=== PATIENT | female | born 1950 | race Caucasian/White ===

== ENCOUNTER → 2016-12-16 | Outpatient (CLI) | payer MEDICARE ==
[~2016-12-16] MED LIST: ACET65TA OR; BISA10SU2 RE; CALC1TAB21 PO; CALCIUM PO; CAPT12.5 OR; CAPT125TA PO; CARI350T OR; CARISPRODOL PO; CEFD1CAP8 PO; CIPR500T4 OR; COLA100C2 OR; COUMADIN; DESIPRAMINE PO; DOXY100C PO; DOXY100T OR; EFFE37.527 OR; EFFE37.527 PO; FERR325T OR; FLUO20CA9 PO; FURO20TA PO; FURO20TA2 PO; FURO40TA2 OR; LACT20EL PO; LASI20TA OR; LASI40TA OR; METF-414 PO; METF500T4 OR; METFORMIN PO; METO-209 PO; METOPROLOL PO; METOPROLOL TARTRATE; NORP10TA2 PO; NORPRAMIN PO; OMEP20CA3 PO; OMEP20TA7 OR; OMEPPOW18 PO; OXYCODONE/APAP PO; PERC10TA17 PO; PERC5TAB8 OR; PERC7.5T8 OR; PLAV75TA2 OR; PLAV75TA38 PO; PLAVIX PO; POTA10CA2 OR; PROB500T29 PO; PROBENECID PO; PROZ20CA OR; PROZAC PO; SIMV20TA2 OR; SIMV40TA2 PO; SIMVASTIN PO; SOMA350T PO; TOPR100T OR; TRAM50TA2 OR; VENL37.5 OR; VERA24TASA PO; VERAPAMIL PO; VESI10TA PO; VESICARE PO; [UNRECOGNIZED DRUG - CODE] OR; heparin SQ
--- NOTE | 2016-12-16 22:18 | REP ---
PA and lateral chest 12/16/2016 Indication: Chronic diastolic congestive heart failure Comparison: PA and lateral chest 06/08/2013 Findings: The cardiomediastinal silhouette is normal. Small amount of bibasilar fibrotic scarring is noted. There do appear to be bilateral bony exostosis off the medial aspect of the humeral necks bilaterally without change , and most compatible with osteochondromas. Additionally findings suggest intra-articular loose bodies within the left shoulder joint representing interval change There are mild degenerative changes in thoracic spine Impression: Normal cardiomediastinal silhouette Mild bibasilar fibrotic scarring. 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 Suggest intra-articular loose bodies within the left shoulders, joint representing interval change Signed by Alejandrina Curtis MD 12/16/2016 10:08 P
== END | disposition home or self-care (01) ==
LOC: M RAD 11:55
PROVIDERS: ATTEND Physician Assistant
DX: R93.7 Abnormal findings on diagnostic imaging of other parts of musculoskeletal system (principal)

== ENCOUNTER 2016-12-26 21:32 | Emergency (ER) | payer MEDICARE ==
[2016-12-26] MEDS ORDERED: MORPHINE 2 MG/ML 1ML SYRINGE As Ordered ONE (22:11)
[2016-12-26 22:19] LABS: BASO # 0.2 K/mm3 (0.0-0.2); BASO % 1.4 % (0.0-1.0); EOS # 0.3 K/mm3 (0.0-0.50); EOS % 2.3 % (0.0-3.0); LARGE UNSTAINED CELL # 0.1 K/mm3 (0.0-0.4); LYMPH % 7.1 % (24.0-44.0); MEAN CORPUSCULAR HEMOGLOBIN 29.2 pg (27.0-33.0); MEAN CORPUSCULAR VOLUME 91.4 fl (80.0-96.0); MONO # 0.5 K/mm3 (0.0-0.8); MONO % 3.9 % (0.0-5.0); NEUTROPHILS % 84.2 % (36.0-66.0); PLATELET COUNT, AUTOMATED 236 k/mm3 (150-450); RED CELL DISTRIBUTION WIDTH 14.3 % (11.5-14.5); WHITE BLOOD COUNT 11.9 K/mm3 (4.0-10.0)
[2016-12-26] MEDS ORDERED: READI-CAT 2 As Ordered ONE (22:24)
[2016-12-26 22:26] LABS: INR 1.01
[2016-12-26 22:40] LABS: ALBUMIN 3.2 GM/DL (3.2-5.2); ALBUMIN/GLOBULIN RATIO 0.73 (1.00-1.93); ALKALINE PHOSPHATASE 96 U/L (45-117); ALT/SGPT 22 U/L (12-78); AMYLASE 17 U/L (25-115); ANION GAP 10 MEQ/L (8-16); AST/SGOT 19 U/L (15-37); BILIRUBIN,DIRECT 0.1 MG/DL (0.0-0.2); BILIRUBIN,TOTAL 0.6 MG/DL (0.2-1.0); BLOOD UREA NITROGEN 15 MG/DL (7-18); CALCIUM LEVEL 8.8 MG/DL (8.8-10.2); CARBON DIOXIDE LEVEL 26 MEQ/L (21-32); CHLORIDE LEVEL 103 MEQ/L (98-107); CREATININE FOR GFR 0.98 MG/DL (0.55-1.02); GLOMERULAR FILTRATION RATE > 60.0 (>45); GLUCOSE, FASTING 130 MG/DL (80-110); POTASSIUM SERUM 3.9 MEQ/L (3.5-5.1); SODIUM LEVEL 139 MEQ/L (136-145); TOTAL PROTEIN 7.6 GM/DL (6.4-8.2)
--- NOTE | 2016-12-27 00:30 | REPUSA ---
CT of the abdomen and pelvis without contrast Clinical statement: Pain. Technique: Multiple axial CT images were obtained from the base of the lungs to the floor of the pelv is utilizing 5 mm axial slices after ministration of oral contrast. Coronal and sagittal reconstructi ons were also obtained. No comparison is available. Findings: Chest: The visualized lung bases are clear. Abdomen: The kidneys are normal in size bilaterally. There is no evidence of hydronephrosis or nephro lithiasis. The liver, spleen, pancreas, gallbladder and adrenal glands are unremarkable. The aorta de monstrates normal caliber and contour. There is no abdominal lymphadenopathy or ascites. IVC filter i s in place. Pelvis: The bowel is unremarkable, with no obstructive or inflammatory changes. The appendix is woo l. The urinary bladder is within normal limits. There is no pelvic lymphadenopathy or ascites. The ot her pelvic structures appear unremarkable. Bones: There are no suspicious osseous abnormalities seen. Impression: Unremarkable CT examination of the abdomen and pelvis.
[2016-12-27] MEDS ORDERED: MORPHINE 2 MG/ML 1ML SYRINGE As Ordered ONE (01:18)
--- NOTE | 2016-12-27 02:49 | EDDOCDS ---
Physician Documentation [facility] Name: Fifi Vigil Age: 66 yrs Sex: Female : 1950 Arrival Date: 12/26/2016 Time: 21:32 Bed 7 Private MD: Redd Griffith MD Disposition: 12/27/16 01:55 Discharged to Home/Self Care. Impression: Left sided colitis, Dehydration, Pneumonia in diseases classified elsewhere - perihilar infiltrate. - Condition is Stable. - Discharge Instructions: Clear Liquid Diet. - Prescriptions for Zithromax Z- Ihsan 250 mg Oral Tablet - take 1 tablet by ORAL route as directed for 5 days Day 1- take two tablets once. Day 2, 3, 4 , 5 take one tablet once daily.; 6 tablet. - Medication Reconciliation, Local Pharmacy Hours form. - Follow up: Redd Griffith; When: Call to arrange an appointment; Reason: Recheck today's complaints. - Problem is new. - Symptoms have improved. Historical: - Allergies: IODINEIODINE CONTAINING; IV Dye (Hives); Latex (Hives); - Home Meds: 1. Calcium + Vitamin D 600 mg calcium- 200 unit Oral tab daily 2. captopril 12.5 mg Oral tab 1 tab 2 times per day 3. carisoprodol 350 mg Oral tab 1 tab 3 times per day 4. desipramine 10 mg Oral tab 1 tab once daily 5. Effexor XR 37.5 mg Oral cp24 1 cap once daily 6. fluoxetine 20 mg Oral cap 3 caps once daily 7. metformin 500 mg Oral tr24 1 tab once daily 8. metoprolol succinate 100 mg Tb24 1 tab once daily 9. omeprazole 20 mg Oral cpDR 1 cap once daily 10. oxycodone-acetaminophen 10-325 mg Oral tab twice a day as needed 11. Plavix 75 mg Oral tab 1 tab once daily 12. probenecid 500 mg Oral tab daily 13. simvastatin 40 mg Oral tab 1 tab once daily 14. verapamil 240 mg Oral TbER 1 tab once daily 15. Vesicare 10 mg oral tab 1 tab once daily 16. nystatin 100,000 unit/gram Topical powd as needed 17. lactulose 20 gram/30 mL Oral soln twice a day - PMHx: CHF; Diabetes - NIDDM: controlled; Diverticulitis; High Cholesterol; spina bifida; TIA; - PSHx: Hysterectomy; amputation toes; Carpal Tunnel Repair- Bilateral; Hernia repair; Tony Filter Placement; left knee replacement; - Social history: Smoking status: Patient states former smoker of tobacco. No barriers to communication noted, The patient speaks fluent Barbadian. - Family history: Not pertinent. - : The pt / caregiver states he / she is not on anticoagulants. Home medication list is obtained from the patient. - Exposure Risk Screening:: None identified. Vital Signs: 12/26 21:34 BP 147 / 67; Pulse 129; Resp 18 S; Temp 99.8(O); Pulse Ox 93% on R/A; Weight 101.15 kg gr2 / 223 lbs (R); Height 5 ft. 7 in. (170.18 cm) (R); Pain 7/10; 12/27 00:14 BP 127 / 86 (auto/); jp6 00:16 Pulse Ox 93% ; jp6 00:16 Pulse 118; Resp 20; Temp 99.6(O); Pain 9/10; jp6 01:21 BP 122 / 65 (auto/); jp6 01:22 Pulse 104 MON; Pulse Ox 94% ; jp6 01:22 Resp 18; Pain 9/10; jp6 01:32 BP 123 / 67 (auto/); jp6 01:33 Pulse 110 MON; Pulse Ox 93% ; jp6 02:02 BP 124 / 58 (auto/); jp6 02:03 Pulse 110 MON; Pulse Ox 92% ; jp6 02:03 Resp 20; Temp 99.6(O); Pain 2/10; jp6 12/26 21:34 Body Mass Index 34.93 (101.15 kg, 170.18 cm) gr2 MDM: 12/26 22:05 IV Saline Lock ordered. cs11 22:05 NS 0.9% 500 ml IV at bolus once ordered. cs11 22:05 morphine 2 mg IVP once ordered. cs11 22:06 CBC with Diff Ordered. EDMS 22:06 MED Profile Ordered. EDMS 22:06 Liver Profile Ordered. EDMS 22:06 Amylase Ordered. EDMS 22:06 Lipase Ordered. EDMS 22:06 Pt & Aptt Ordered. EDMS 22:11 CT ABD & PELVIS: Oral Contrast Only Ordered. EDMS 22:30 Barium Sulfate Suspension 450 ml PO bolus ordered. jp6 22:44 CBC with Diff Reviewed. cs11 22:44 MED Profile Reviewed. cs11 22:44 Liver Profile Reviewed. cs11 22:44 Amylase Reviewed. cs11 22:44 Lipase Reviewed. cs11 22:44 Pt & Aptt Reviewed. cs11 22:44 NS 0.9% 500 ml IV at bolus once ordered. cs11 22:51 Financial registration complete. gjb 23:01 [facility] Payment Agreement was scanned into [employer] and attached to record. gjb 23:01 Undo -Financial registration. gjb 23:01 Financial registration complete. gjb 23:36 Barium Sulfate Suspension 450 ml PO bolus ordered. jp6 12/27 00:59 CT ABD & PELVIS: Oral Contrast Only Reviewed. cs11 00:59 NS 0.9% 500 ml IV at bolus once ordered. cs11 01:02 Chest, 2 View (pa\E\lat) Ordered. EDMS 01:18 morphine 2 mg IVP once ordered. cs11 01:18 Vital Signs ordered. cs11 Administered Medications: 12/26 22:20 Drug: morphine 2 mg [morphine 2 mg/mL intravenous cartridge (1 mL)] Route: IVP; Site: jp6 right antecubital; 22:21 Drug: NS 0.9% 500 ml [sodium chloride 0.9 % intravenous solution] Route: IV; Rate: jp6 bolus; Site: right antecubital; 22:30 Drug: Barium Sulfate 450 ml [barium sulfate 2.1 % (w/v), 2.0 % (w/w) oral suspension jp6 (450 mL)] Route: PO; 23:02 Drug: NS 0.9% 500 ml [sodium chloride 0.9 % intravenous solution] Route: IV; Rate: jp6 bolus; Site: right antecubital; 23:36 Drug: Barium Sulfate 450 ml [barium sulfate 2.1 % (w/v), 2.0 % (w/w) oral suspension jp6 (450 mL)] Route: PO; 12/27 01:29 Drug: morphine 2 mg [morphine 2 mg/mL intravenous cartridge (1 mL)] Route: IVP; Site: jp6 right antecubital; 01:30 Drug: NS 0.9% 500 ml [sodium chloride 0.9 % intravenous solution] Route: IV; Rate: jp6 bolus; Site: right antecubital; Signatures: Dispatcher [employer] Naina Flower RN RN rs3 Christiano Rojas DO DO cs11 Sulema Clement Jessica, RN RN jp6 The chart was reviewed and I authenticate all verbal orders and agree with the evaluation and treatment provided.Attachments: 12/26 23:01 [facility] Payment Agreement demetria MTDD
--- NOTE | 2016-12-27 02:49 | EDDOCDS ---
Nurse's Notes [facility] Name: Fifi Vigil Age: 66 yrs Sex: Female : 1950 Arrival Date: 12/26/2016 Time: 21:32 Bed 7 Private MD: Redd Griffith MD Diagnosis: Left sided colitis;Dehydration;Pneumonia in diseases classified elsewhere-perihilar infiltrate Presentation: 12/26 21:39 Presenting complaint: Patient states: Rectal bleeding, mucous diarrhea since Thursday rs3 on and off. Adult Sepsis Screening: The patient does not have new or worsening altered mentation. Patient's respiratory rate is less than 22. Systolic blood pressure is greater than 100. Patient has a qSOFA score of 0- Negative Sepsis Screen. Suicide/Homicide risk assessment- the patient denies having any suicidal and/or homicidal ideations and does not present with any other emotional, behavioral or mental health complaints. 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 Transition of care: patient was not received from another setting of care. 21:39 Acuity: BRITTANIE Level 3 rs3 21:39 Method Of Arrival: Walkin/Carried/Asstd rs3 Triage Assessment: 21:43 General: Appears in no apparent distress. Pain: Location: abdomen. rs3 Historical: - Allergies: IODINEIODINE CONTAINING; IV Dye (Hives); Latex (Hives); - Home Meds: 1. Calcium + Vitamin D 600 mg calcium- 200 unit Oral tab daily 2. captopril 12.5 mg Oral tab 1 tab 2 times per day 3. carisoprodol 350 mg Oral tab 1 tab 3 times per day 4. desipramine 10 mg Oral tab 1 tab once daily 5. Effexor XR 37.5 mg Oral cp24 1 cap once daily 6. fluoxetine 20 mg Oral cap 3 caps once daily 7. metformin 500 mg Oral tr24 1 tab once daily 8. metoprolol succinate 100 mg Tb24 1 tab once daily 9. omeprazole 20 mg Oral cpDR 1 cap once daily 10. oxycodone-acetaminophen 10-325 mg Oral tab twice a day as needed 11. Plavix 75 mg Oral tab 1 tab once daily 12. probenecid 500 mg Oral tab daily 13. simvastatin 40 mg Oral tab 1 tab once daily 14. verapamil 240 mg Oral TbER 1 tab once daily 15. Vesicare 10 mg oral tab 1 tab once daily 16. nystatin 100,000 unit/gram Topical powd as needed 17. lactulose 20 gram/30 mL Oral soln twice a day - PMHx: CHF; Diabetes - NIDDM: controlled; Diverticulitis; High Cholesterol; spina bifida; TIA; - PSHx: Hysterectomy; amputation toes; Carpal Tunnel Repair- Bilateral; Hernia repair; Tony Filter Placement; left knee replacement; - Social history: Smoking status: Patient states former smoker of tobacco. No barriers to communication noted, The patient speaks fluent Icelandic. - Family history: Not pertinent. - : The pt / caregiver states he / she is not on anticoagulants. Home medication list is obtained from the patient. - Exposure Risk Screening:: None identified. Screenin:39 Infection Control. gr2 21:50 Screening information is obtained from the patient. Fall risk: No risks identified. jp6 Assistance ADL's: requires no assistance with activities of daily living. Abuse/DV Screen: The patient / caregiver reports he/she is: not in a situation that causes fear, pain or injury. Nutritional screening: No deficits noted. home support is adequate. 12/27 02:03 Advance Directives: Currently, there is no health care proxy. There is no active DNR jp6 order. There is no living will. Assessment: 12/26 21:50 General: Appears distressed, ill, obese, uncomfortable, Behavior is anxious, jp6 appropriate for age, cooperative. Pain: Location: abdomen Pain currently is 8 out of 10 on a pain scale. back, Quality of pain is described as pressure. Neurological: No deficits noted. Level of Consciousness is awake, alert, Oriented to person, place, time. EENT: No deficits noted. Cardiovascular: No deficits noted. Respiratory: No deficits noted. Airway is patent Respiratory effort is even, unlabored, Respiratory pattern is regular, symmetrical, Breath sounds are clear bilaterally. GI: Abdomen is obese, Stools are reported to be diarrhea. Bowel sounds present X 4 quads. : No deficits noted. Derm: Skin is pink, warm & dry. Musculoskeletal: No deficits noted. 22:50 Reassessment: pain is at 5/10 ,drinking oral contrast.. jp6 23:52 Reassessment: Patient appears in no apparent distress at this time. out of bed to 6 bathroom had small yellow loose stool. Waiting for CT.. 12/27 00:52 Reassessment: Patient states symptoms have improved. Pain: Location: abdomen Pain jp6 currently is 8 out of 10 on a pain scale. Neurological: Level of Consciousness is awake, alert, Oriented to person, place, time. Cardiovascular: No deficits noted. Respiratory: No deficits noted. Airway is patent Respiratory effort is even, unlabored, Respiratory pattern is regular, symmetrical. Derm: Skin is pink, warm & dry. 00:52 Reassessment: Patient states symptoms have improved. VS are stable.Waiting for jp6 discharge after IVF bolus.. 01:52 Reassessment: Patient appears in no apparent distress at this time. Patient states jp6 symptoms have not improved. General: Appears in no apparent distress, uncomfortable, Behavior is appropriate for age, cooperative. Pain: Location: abdomen Pain currently is 5 out of 10 on a pain scale. Respiratory: Airway is patent Respiratory effort is even, unlabored, Respiratory pattern is regular, symmetrical. Derm: Skin is pink, warm & dry. 02:44 Reassessment: Patient appears in no apparent distress at this time. Patient states jp6 symptoms have improved. Pain: Location: abdomen Pain currently is 2 out of 10 on a pain scale. Neurological: Level of Consciousness is awake, alert, Oriented to person, place, time. EENT: No deficits noted. Cardiovascular: No deficits noted. Respiratory: Airway is patent Respiratory effort is even, unlabored, Respiratory pattern is regular, symmetrical. Derm: Skin is pink, warm & dry. Musculoskeletal: No deficits noted. Vital Signs: 12/26 21:34 BP 147 / 67; Pulse 129; Resp 18 S; Temp 99.8(O); Pulse Ox 93% on R/A; Weight 101.15 kg gr2 (R); Height 5 ft. 7 in. (170.18 cm) (R); Pain 06/08; 12/27 00:14 BP 127 / 86 (auto/); jp6 00:16 Pulse Ox 93% ; jp6 00:16 Pulse 118; Resp 20; Temp 99.6(O); Pain 9/10; jp6 01:21 BP 122 / 65 (auto/); jp6 01:22 Pulse 104 MON; Pulse Ox 94% ; jp6 01:22 Resp 18; Pain 9/10; jp6 01:32 BP 123 / 67 (auto/); jp6 01:33 Pulse 110 MON; Pulse Ox 93% ; jp6 02:02 BP 124 / 58 (auto/); jp6 02:03 Pulse 110 MON; Pulse Ox 92% ; jp6 02:03 Resp 20; Temp 99.6(O); Pain 2/10; jp6 12/26 21:34 Body Mass Index 34.93 (101.15 kg, 170.18 cm) gr2 Vitals: 12/26 21:34 Log In Time: December 26, 2016 at 21:34. RN notified that patient meets Red Flag gr2 criteria. ED Course: 21:34 Patient visited by Irlanda Laughlin. gr2 21:34 Redd Griffith is Private Physician. gr2 21:34 Patient moved to Waiting gr2 21:37 Patient visited by Irlanda Laughlin. gr2 21:37 Patient moved to Pre RCE gr2 21:40 Triage Initiated rs3 21:44 Christiano Rojas DO is Attending Physician. cs11 21:44 Patient visited by Christiano Rojas DO. cs11 21:44 Patient moved to 7 rs3 21:45 Irina Raygoza,FREYA is Primary Nurse. jp6 21:50 The patient / caregiver is instructed regarding the plan of care and ED course. jp6 21:50 Inserted saline lock: 20 gauge in right antecubital area and blood collected. No jp6 procedures done that require assistance. Labs drawn. (by ED staff). Sent per order to lab. 23:01 [facility] Payment Agreement was scanned into [employer] Trunk and attached to record. gjb 23:02 Patient visited by Irina Raygoza RN. jp6 12/27 00:12 Patient visited by Irina Raygoza RN. jp6 00:50 CT ABD & PELVIS: Oral Contrast Only Returned. EDMS 01:16 Patient visited by Irina Raygoza RN. jp6 01:54 Redd Griffith is Referral Physician. cs11 02:03 Pulse ox on. NIBP on. jp6 02:03 Discontinued lock intact, bleeding controlled, pressure dressing applied, No jp6 redness/swelling at site. Administered Medications: 12/26 22:20 Drug: morphine 2 mg [morphine 2 mg/mL intravenous cartridge (1 mL)] Route: IVP; Site: jp6 right antecubital; 22:21 Drug: NS 0.9% 500 ml [sodium chloride 0.9 % intravenous solution] Route: IV; Rate: jp6 bolus; Site: right antecubital; 22:30 Drug: Barium Sulfate 450 ml [barium sulfate 2.1 % (w/v), 2.0 % (w/w) oral suspension jp6 (450 mL)] Route: PO; 23:02 Drug: NS 0.9% 500 ml [sodium chloride 0.9 % intravenous solution] Route: IV; Rate: jp6 bolus; Site: right antecubital; 23:36 Drug: Barium Sulfate 450 ml [barium sulfate 2.1 % (w/v), 2.0 % (w/w) oral suspension jp6 (450 mL)] Route: PO; 12/27 01:29 Drug: morphine 2 mg [morphine 2 mg/mL intravenous cartridge (1 mL)] Route: IVP; Site: jp6 right antecubital; 01:30 Drug: NS 0.9% 500 ml [sodium chloride 0.9 % intravenous solution] Route: IV; Rate: jp6 bolus; Site: right antecubital; Intake: 02:03 PO: 120.00ml; IV: 1500.00ml; Total: 1620.00ml. jp6 Output: 02:03 Urine: 1.00ml (Voided); Stool: 1 (Loose Stool) ; Total: 1.00ml. jp6 Order Results: Lab Order: CBC with Diff; SPEC'M 12/26/16 22:06 Test: WHITE BLOOD COUNT; Value: 11.9; Range: 4.0-10.0; Abnormal: Above high normal; Units: K/mm3; Status: F Test: RED BLOOD COUNT; Value: 4.48; Range: 4.00-5.40; Units: M/mm3; Status: F Test: HEMOGLOBIN; Value: 13.1; Range: 12.0-16.0; Units: g/dl; Status: F Test: HEMATOCRIT; Value: 41.0; Range: 36.0-47.0; Units: %; Status: F Test: MEAN CORPUSCULAR VOLUME; Value: 91.4; Range: 80.0-96.0; Units: fl; Status: F Test: MEAN CORPUSCULAR HEMOGLOBIN; Value: 29.2; Range: 27.0-33.0; Units: pg; Status: F Test: MEAN CORPUSCULAR HGB CONC; Value: 32.0; Range: 32.0-36.5; Units: g/dl; Status: F Test: RED CELL DISTRIBUTION WIDTH; Value: 14.3; Range: 11.5-14.5; Units: %; Status: F Test: PLATELET COUNT, AUTOMATED; Value: 236; Range: 150-450; Units: k/mm3; Status: F Test: NEUTROPHILS %; Value: 84.2; Range: 36.0-66.0; Abnormal: Above high normal; Units: %; Status: F Test: LYMPH %; Value: 7.1; Range: 24.0-44.0; Abnormal: Below low normal; Units: %; Status: F Test: MONO %; Value: 3.9; Range: 0.0-5.0; Units: %; Status: F Test: EOS %; Value: 2.3; Range: 0.0-3.0; Units: %; Status: F Test: BASO %; Value: 1.4; Range: 0.0-1.0; Abnormal: Above high normal; Units: %; Status: F Test: LARGE UNSTAINED CELL %; Value: 1.0; Range: 0.0-4.0; Units: %; Status: F Test: NEUTROPHILS #; Value: 10.0; Range: 1.8-7.7; Abnormal: Above high normal; Units: K/mm3; Status: F Test: LYMPH #; Value: 1.0; Range: 1.5-4.5; Abnormal: Below low normal; Units: K/mm3; Status: F Test: MONO #; Value: 0.5; Range: 0.0-0.8; Units: K/mm3; Status: F Test: EOS #; Value: 0.3; Range: 0.0-0.50; Units: K/mm3; Status: F Test: BASO #; Value: 0.2; Range: 0.0-0.2; Units: K/mm3; Status: F Test: LARGE UNSTAINED CELL #; Value: 0.1; Range: 0.0-0.4; Units: K/mm3; Status: F Lab Order: MED Profile; SPEC'M 12/26/16 22:06 Test: GLUCOSE, FASTING; Value: 130; Range: 80-110; Abnormal: Above high normal; Units: MG/DL; Status: F Test: BLOOD UREA NITROGEN; Value: 15; Range: 7-18; Units: MG/DL; Status: F Test: CREATININE FOR GFR; Value: 0.98; Range: 0.55-1.02; Units: MG/DL; Status: F Test: GLOMERULAR FILTRATION RATE; Value: > 60.0; Range: >45; Status: F Test: SODIUM LEVEL; Value: 139; Range: 136-145; Units: MEQ/L; Status: F Test: POTASSIUM SERUM; Value: 3.9; Range: 3.5-5.1; Units: MEQ/L; Status: F Test: CHLORIDE LEVEL; Value: 103; Range: 98-107; Units: MEQ/L; Status: F Test: CARBON DIOXIDE LEVEL; Value: 26; Range: 21-32; Units: MEQ/L; Status: F Test: ANION GAP; Value: 10; Range: 8-16; Units: MEQ/L; Status: F Test: CALCIUM LEVEL; Value: 8.8; Range: 8.8-10.2; Units: MG/DL; Status: F Test Note: ; Units are mL/min/1.73 m2 Chronic Kidney Disease Staging per NKF: Stage I & II GFR >=60 Normal to Mildly Decreased Stage III GFR 30-59 Moderately Decreased Stage IV GFR 15-29 Severely Decreased Stage V GFR <15 Very Little GFR Left ESRD GFR <15 on CHANGE ATTENDANT Lab Order: Liver Profile; SPEC'M 12/26/16 22:06 Test: AST/SGOT; Value: 19; Range: 15-37; Units: U/L; Status: F Test: ALT/SGPT; Value: 22; Range: 12-78; Units: U/L; Status: F Test: ALKALINE PHOSPHATASE; Value: 96; Range: 45-117; Units: U/L; Status: F Test: BILIRUBIN,TOTAL; Value: 0.6; Range: 0.2-1.0; Units: MG/DL; Status: F Test: BILIRUBIN,DIRECT; Value: 0.1; Range: 0.0-0.2; Units: MG/DL; Status: F Test: TOTAL PROTEIN; Value: 7.6; Range: 6.4-8.2; Units: GM/DL; Status: F Test: ALBUMIN; Value: 3.2; Range: 3.2-5.2; Units: GM/DL; Status: F Test: ALBUMIN/GLOBULIN RATIO; Value: 0.73; Range: 1.00-1.93; Abnormal: Below low normal; Status: F Lab Order: Amylase; SPEC' 12/26/16 22:06 Test: AMYLASE; Value: 17; Range: 25-115; Abnormal: Below low normal; Units: U/L; Status: F Lab Order: Lipase; [facility] 12/26/16 22:06 Test: LIPASE; Value: 52; Range: 73-393; Abnormal: Below low normal; Units: U/L; Status: F Lab Order: Pt & Aptt; [facility] 12/26/16 22:06 Test: PROTHROMBIN TIME; Value: 13.4; Range: 12.3-14.5; Units: SECONDS; Status: F Test: INR; Value: 1.01; Status: F Test: PARTIAL THROMBOPLASTIN TIME; Value: 29.5; Range: 26.6-37.1; Units: SECONDS; Status: F Test Note: ; THERAPUTIC HUMAN INR VALUES INDICATIONS NORMAL RANGES PROPHYLAXIS/TREATMENT OF: VENOUS THROMBOSIS 2.0-3.0 PULMONARY EMBOLISM 2.0-3.0 PREVENTION OF SYSTEMIC EMBOLISM FROM: TISSUE HEART VALVES 2.0-3.0 ACUTE MYOCARDIAL INFARCTION 2.0-3.0 VALVULAR HEART DISEASE 2.0-3.0 ATRIAL FIBRILLATION 2.0-3.0 MECHANICAL VALVES(HIGH RISK) 2.5-3.5 RECURRENT MYOCARDIAL INFARCTION 2.5-3.5 Radiology Order: CT ABD & PELVIS: Oral Contrast Only Test: CT ABD & PELVIS: Oral Contrast Only REASON FOR EXAMINATION: Diverticulitis; ; CT of the abdomen and pelvis without contrast; Clinical statement: Pain.; Technique: Multiple axial CT images were obtained from the base of the lungs to the floor of the pelv; is utilizing 5 mm axial slices after ministration of oral contrast. Coronal and sagittal reconstructi; ons were also obtained.; No comparison is available.; Findings:; Chest: The visualized lung bases are clear.; Abdomen: The kidneys are normal in size bilaterally. There is no evidence of hydronephrosis or nephro; lithiasis. The liver, spleen, pancreas, gallbladder and adrenal glands are unremarkable. The aorta de; monstrates normal caliber and contour. There is no abdominal lymphadenopathy or ascites. IVC filter i; s in place.; Pelvis: The bowel is unremarkable, with no obstructive or inflammatory changes. The appendix is woo; l. The urinary bladder is within normal limits. There is no pelvic lymphadenopathy or ascites. The ot; her pelvic structures appear unremarkable.; Bones: There are no suspicious osseous abnormalities seen.; Impression: Unremarkable CT examination of the abdomen and pelvis.; ; Outcome: 01:55 Discharge ordered by Provider. cs11 02:03 Discharge Assessment: Patient awake, alert and oriented x 3. No cognitive and/or jp6 functional deficits noted. Patient verbalized understanding of disposition instructions. patient administered narcotics - yes. Pt provided with safe discharge. The following High Risk Discharge criteria are identified: None. Discharged to home via wheelchair, with significant other. Condition: good. Discharge instructions given to patient, Instructed on discharge instructions, follow up and referral plans. medication usage, Demonstrated understanding of instructions, medications, Pt was receptive of discharge instructions/ teaching. Prescriptions given X 1. CT Study completed. Property :Personal belongings accompany Pt. 02:47 Patient left the ED. jp6 Signatures: Dispatcher [employer] EDMS Naina Matias,RN RN rs3 Christiano Rojas DO DO cs11 Irlanda Laughlin 2 Sulema Clement Jessica, RN RN jp6 MTDD
--- NOTE | 2016-12-29 03:48 | EDDOCDS ---
Nurse's Notes [facility] Name: Fifi Vigil Age: 66 yrs Sex: Female : 1950 Arrival Date: 12/26/2016 Time: 21:32 Bed 7 Private MD: Redd Griffith MD Diagnosis: Left sided colitis;Dehydration;Pneumonia in diseases classified elsewhere-perihilar infiltrate Presentation: 12/26 21:39 Presenting complaint: Patient states: Rectal bleeding, mucous diarrhea since Thursday rs3 on and off. Adult Sepsis Screening: The patient does not have new or worsening altered mentation. Patient's respiratory rate is less than 22. Systolic blood pressure is greater than 100. Patient has a qSOFA score of 0- Negative Sepsis Screen. Suicide/Homicide risk assessment- the patient denies having any suicidal and/or homicidal ideations and does not present with any other emotional, behavioral or mental health complaints. Status: Patient is not a human services assistant or dependent. Transition of care: patient was not received from another setting of care. 21:39 Acuity: BRITTANIE Level 3 rs3 21:39 Method Of Arrival: Walkin/Carried/Asstd rs3 Triage Assessment: 21:43 General: Appears in no apparent distress. Pain: Location: abdomen. rs3 Historical: - Allergies: IODINEIODINE CONTAINING; IV Dye (Hives); Latex (Hives); - Home Meds: 1. Calcium + Vitamin D 600 mg calcium- 200 unit Oral tab daily 2. captopril 12.5 mg Oral tab 1 tab 2 times per day 3. carisoprodol 350 mg Oral tab 1 tab 3 times per day 4. desipramine 10 mg Oral tab 1 tab once daily 5. Effexor XR 37.5 mg Oral cp24 1 cap once daily 6. fluoxetine 20 mg Oral cap 3 caps once daily 7. metformin 500 mg Oral tr24 1 tab once daily 8. metoprolol succinate 100 mg Tb24 1 tab once daily 9. omeprazole 20 mg Oral cpDR 1 cap once daily 10. oxycodone-acetaminophen 10-325 mg Oral tab twice a day as needed 11. Plavix 75 mg Oral tab 1 tab once daily 12. probenecid 500 mg Oral tab daily 13. simvastatin 40 mg Oral tab 1 tab once daily 14. verapamil 240 mg Oral TbER 1 tab once daily 15. Vesicare 10 mg oral tab 1 tab once daily 16. nystatin 100,000 unit/gram Topical powd as needed 17. lactulose 20 gram/30 mL Oral soln twice a day - PMHx: CHF; Diabetes - NIDDM: controlled; Diverticulitis; High Cholesterol; spina bifida; TIA; - PSHx: Hysterectomy; amputation toes; Carpal Tunnel Repair- Bilateral; Hernia repair; Tony Filter Placement; left knee replacement; - Social history: Smoking status: Patient states former smoker of tobacco. No barriers to communication noted, The patient speaks fluent [place]agu[place]. - Family history: Not pertinent. - : The pt / caregiver states he / she is not on anticoagulants. Home medication list is obtained from the patient. - Exposure Risk Screening:: None identified. Screenin:39 Infection Control. gr2 21:50 Screening information is obtained from the patient. Fall risk: No risks identified. jp6 Assistance ADL's: requires no assistance with activities of daily living. Abuse/DV Screen: The patient / caregiver reports he/she is: not in a situation that causes fear, pain or injury. Nutritional screening: No deficits noted. home support is adequate. 12/27 02:03 Advance Directives: Currently, there is no health care proxy. There is no active DNR jp6 order. There is no living will. Assessment: 12/26 21:50 General: Appears distressed, ill, obese, uncomfortable, Behavior is anxious, jp6 appropriate for age, cooperative. Pain: Location: abdomen Pain currently is 8 out of 10 on a pain scale. back, Quality of pain is described as pressure. Neurological: No deficits noted. Level of Consciousness is awake, alert, Oriented to person, place, time. EENT: No deficits noted. Cardiovascular: No deficits noted. Respiratory: No deficits noted. Airway is patent Respiratory effort is even, unlabored, Respiratory pattern is regular, symmetrical, Breath sounds are clear bilaterally. GI: Abdomen is obese, Stools are reported to be diarrhea. Bowel sounds present X 4 quads. : No deficits noted. Derm: Skin is pink, warm & dry. Musculoskeletal: No deficits noted. 22:50 Reassessment: pain is at 5/10 ,drinking oral contrast.. jp6 23:52 Reassessment: Patient appears in no apparent distress at this time. out of bed to 6 bathroom had small yellow loose stool. Waiting for CT.. 12/27 00:52 Reassessment: Patient states symptoms have improved. Pain: Location: abdomen Pain jp6 currently is 8 out of 10 on a pain scale. Neurological: Level of Consciousness is awake, alert, Oriented to person, place, time. Cardiovascular: No deficits noted. Respiratory: No deficits noted. Airway is patent Respiratory effort is even, unlabored, Respiratory pattern is regular, symmetrical. Derm: Skin is pink, warm & dry. 00:52 Reassessment: Patient states symptoms have improved. VS are stable.Waiting for jp6 discharge after IVF bolus.. 01:52 Reassessment: Patient appears in no apparent distress at this time. Patient states jp6 symptoms have not improved. General: Appears in no apparent distress, uncomfortable, Behavior is appropriate for age, cooperative. Pain: Location: abdomen Pain currently is 5 out of 10 on a pain scale. Respiratory: Airway is patent Respiratory effort is even, unlabored, Respiratory pattern is regular, symmetrical. Derm: Skin is pink, warm & dry. 02:44 Reassessment: Patient appears in no apparent distress at this time. Patient states jp6 symptoms have improved. Pain: Location: abdomen Pain currently is 2 out of 10 on a pain scale. Neurological: Level of Consciousness is awake, alert, Oriented to person, place, time. EENT: No deficits noted. Cardiovascular: No deficits noted. Respiratory: Airway is patent Respiratory effort is even, unlabored, Respiratory pattern is regular, symmetrical. Derm: Skin is pink, warm & dry. Musculoskeletal: No deficits noted. Vital Signs: 12/26 21:34 BP 147 / 67; Pulse 129; Resp 18 S; Temp 99.8(O); Pulse Ox 93% on R/A; Weight 101.15 kg gr2 (R); Height 5 ft. 7 in. (170.18 cm) (R); Pain 06/08; 12/27 00:14 BP 127 / 86 (auto/); jp6 00:16 Pulse Ox 93% ; jp6 00:16 Pulse 118; Resp 20; Temp 99.6(O); Pain 9/10; jp6 01:21 BP 122 / 65 (auto/); jp6 01:22 Pulse 104 MON; Pulse Ox 94% ; jp6 01:22 Resp 18; Pain 9/10; jp6 01:32 BP 123 / 67 (auto/); jp6 01:33 Pulse 110 MON; Pulse Ox 93% ; jp6 02:02 BP 124 / 58 (auto/); jp6 02:03 Pulse 110 MON; Pulse Ox 92% ; jp6 02:03 Resp 20; Temp 99.6(O); Pain 2/10; jp6 12/26 21:34 Body Mass Index 34.93 (101.15 kg, 170.18 cm) gr2 Vitals: 12/26 21:34 Log In Time: December 26, 2016 at 21:34. RN notified that patient meets Red Flag gr2 criteria. ED Course: 21:34 Patient visited by Irlanda Laughlin. gr2 21:34 Redd Griffith is Private Physician. gr2 21:34 Patient moved to Waiting gr2 21:37 Patient visited by Irlanda Laughlin. gr2 21:37 Patient moved to Pre RCE gr2 21:40 Triage Initiated rs3 21:44 Christiano Rojas DO is Attending Physician. cs11 21:44 Patient visited by Christiano Rojas DO. cs11 21:44 Patient moved to 7 rs3 21:45 Irina Raygoza,FREYA is Primary Nurse. jp6 21:50 The patient / caregiver is instructed regarding the plan of care and ED course. jp6 21:50 Inserted saline lock: 20 gauge in right antecubital area and blood collected. No jp6 procedures done that require assistance. Labs drawn. (by ED staff). Sent per order to lab. 23:01 [facility] Payment Agreement was scanned into [employer] and attached to record. gjb 23:02 Patient visited by Irina Raygoza RN. jp6 12/27 00:12 Patient visited by Irina Raygoza,FREYA. jp6 00:50 CT ABD & PELVIS: Oral Contrast Only Returned. EDMS 01:16 Patient visited by Irina Raygoza,FREYA. jp6 01:54 Redd Griffith is Referral Physician. cs11 02:03 Pulse ox on. NIBP on. jp6 02:03 Discontinued lock intact, bleeding controlled, pressure dressing applied, No jp6 redness/swelling at site. 07:46 T-Sheet-- Draft Copy was scanned into [employer] and attached to record. gb 10:57 Radiology Report was scanned into [employer] and attached to record. gb Administered Medications: 12/26 22:20 Drug: morphine 2 mg [morphine 2 mg/mL intravenous cartridge (1 mL)] Route: IVP; Site: jp6 right antecubital; 22:21 Drug: NS 0.9% 500 ml [sodium chloride 0.9 % intravenous solution] Route: IV; Rate: jp6 bolus; Site: right antecubital; 22:30 Drug: Barium Sulfate 450 ml [barium sulfate 2.1 % (w/v), 2.0 % (w/w) oral suspension jp6 (450 mL)] Route: PO; 23:02 Drug: NS 0.9% 500 ml [sodium chloride 0.9 % intravenous solution] Route: IV; Rate: jp6 bolus; Site: right antecubital; 23:36 Drug: Barium Sulfate 450 ml [barium sulfate 2.1 % (w/v), 2.0 % (w/w) oral suspension jp6 (450 mL)] Route: PO; 12/27 01:29 Drug: morphine 2 mg [morphine 2 mg/mL intravenous cartridge (1 mL)] Route: IVP; Site: jp6 right antecubital; 01:30 Drug: NS 0.9% 500 ml [sodium chloride 0.9 % intravenous solution] Route: IV; Rate: jp6 bolus; Site: right antecubital; Intake: 02:03 PO: 120.00ml; IV: 1500.00ml; Total: 1620.00ml. jp6 Output: 02:03 Urine: 1.00ml (Voided); Stool: 1 (Loose Stool) ; Total: 1.00ml. jp6 Order Results: Lab Order: CBC with Diff; SPEC'M 12/26/16 22:06 Test: WHITE BLOOD COUNT; Value: 11.9; Range: 4.0-10.0; Abnormal: Above high normal; Units: K/mm3; Status: F Test: RED BLOOD COUNT; Value: 4.48; Range: 4.00-5.40; Units: M/mm3; Status: F Test: HEMOGLOBIN; Value: 13.1; Range: 12.0-16.0; Units: g/dl; Status: F Test: HEMATOCRIT; Value: 41.0; Range: 36.0-47.0; Units: %; Status: F Test: MEAN CORPUSCULAR VOLUME; Value: 91.4; Range: 80.0-96.0; Units: fl; Status: F Test: MEAN CORPUSCULAR HEMOGLOBIN; Value: 29.2; Range: 27.0-33.0; Units: pg; Status: F Test: MEAN CORPUSCULAR HGB CONC; Value: 32.0; Range: 32.0-36.5; Units: g/dl; Status: F Test: RED CELL DISTRIBUTION WIDTH; Value: 14.3; Range: 11.5-14.5; Units: %; Status: F Test: PLATELET COUNT, AUTOMATED; Value: 236; Range: 150-450; Units: k/mm3; Status: F Test: NEUTROPHILS %; Value: 84.2; Range: 36.0-66.0; Abnormal: Above high normal; Units: %; Status: F Test: LYMPH %; Value: 7.1; Range: 24.0-44.0; Abnormal: Below low normal; Units: %; Status: F Test: MONO %; Value: 3.9; Range: 0.0-5.0; Units: %; Status: F Test: EOS %; Value: 2.3; Range: 0.0-3.0; Units: %; Status: F Test: BASO %; Value: 1.4; Range: 0.0-1.0; Abnormal: Above high normal; Units: %; Status: F Test: LARGE UNSTAINED CELL %; Value: 1.0; Range: 0.0-4.0; Units: %; Status: F Test: NEUTROPHILS #; Value: 10.0; Range: 1.8-7.7; Abnormal: Above high normal; Units: K/mm3; Status: F Test: LYMPH #; Value: 1.0; Range: 1.5-4.5; Abnormal: Below low normal; Units: K/mm3; Status: F Test: MONO #; Value: 0.5; Range: 0.0-0.8; Units: K/mm3; Status: F Test: EOS #; Value: 0.3; Range: 0.0-0.50; Units: K/mm3; Status: F Test: BASO #; Value: 0.2; Range: 0.0-0.2; Units: K/mm3; Status: F Test: LARGE UNSTAINED CELL #; Value: 0.1; Range: 0.0-0.4; Units: K/mm3; Status: F Lab Order: MED Profile; SPEC'M 12/26/16 22:06 Test: GLUCOSE, FASTING; Value: 130; Range: 80-110; Abnormal: Above high normal; Units: MG/DL; Status: F Test: BLOOD UREA NITROGEN; Value: 15; Range: 7-18; Units: MG/DL; Status: F Test: CREATININE FOR GFR; Value: 0.98; Range: 0.55-1.02; Units: MG/DL; Status: F Test: GLOMERULAR FILTRATION RATE; Value: > 60.0; Range: >45; Status: F Test: SODIUM LEVEL; Value: 139; Range: 136-145; Units: MEQ/L; Status: F Test: POTASSIUM SERUM; Value: 3.9; Range: 3.5-5.1; Units: MEQ/L; Status: F Test: CHLORIDE LEVEL; Value: 103; Range: 98-107; Units: MEQ/L; Status: F Test: CARBON DIOXIDE LEVEL; Value: 26; Range: 21-32; Units: MEQ/L; Status: F Test: ANION GAP; Value: 10; Range: 8-16; Units: MEQ/L; Status: F Test: CALCIUM LEVEL; Value: 8.8; Range: 8.8-10.2; Units: MG/DL; Status: F Test Note: ; Units are mL/min/1.73 m2 Chronic Kidney Disease Staging per NKF: Stage I & II GFR >=60 Normal to Mildly Decreased Stage III GFR 30-59 Moderately Decreased Stage IV GFR 15-29 Severely Decreased Stage V GFR <15 Very Little GFR Left ESRD GFR <15 on STERILIZATION TECHNICIAN Lab Order: Liver Profile; SPEC'M 12/26/16 22:06 Test: AST/SGOT; Value: 19; Range: 15-37; Units: U/L; Status: F Test: ALT/SGPT; Value: 22; Range: 12-78; Units: U/L; Status: F Test: ALKALINE PHOSPHATASE; Value: 96; Range: 45-117; Units: U/L; Status: F Test: BILIRUBIN,TOTAL; Value: 0.6; Range: 0.2-1.0; Units: MG/DL; Status: F Test: BILIRUBIN,DIRECT; Value: 0.1; Range: 0.0-0.2; Units: MG/DL; Status: F Test: TOTAL PROTEIN; Value: 7.6; Range: 6.4-8.2; Units: GM/DL; Status: F Test: ALBUMIN; Value: 3.2; Range: 3.2-5.2; Units: GM/DL; Status: F Test: ALBUMIN/GLOBULIN RATIO; Value: 0.73; Range: 1.00-1.93; Abnormal: Below low normal; Status: F Lab Order: Amylase; [facility] 12/26/16 22:06 Test: AMYLASE; Value: 17; Range: 25-115; Abnormal: Below low normal; Units: U/L; Status: F Lab Order: Lipase; [facility] 12/26/16 22:06 Test: LIPASE; Value: 52; Range: 73-393; Abnormal: Below low normal; Units: U/L; Status: F Lab Order: Pt & Aptt; [facility] 12/26/16 22:06 Test: PROTHROMBIN TIME; Value: 13.4; Range: 12.3-14.5; Units: SECONDS; Status: F Test: INR; Value: 1.01; Status: F Test: PARTIAL THROMBOPLASTIN TIME; Value: 29.5; Range: 26.6-37.1; Units: SECONDS; Status: F Test Note: ; THERAPUTIC HUMAN INR VALUES INDICATIONS NORMAL RANGES PROPHYLAXIS/TREATMENT OF: VENOUS THROMBOSIS 2.0-3.0 PULMONARY EMBOLISM 2.0-3.0 PREVENTION OF SYSTEMIC EMBOLISM FROM: TISSUE HEART VALVES 2.0-3.0 ACUTE MYOCARDIAL INFARCTION 2.0-3.0 VALVULAR HEART DISEASE 2.0-3.0 ATRIAL FIBRILLATION 2.0-3.0 MECHANICAL VALVES(HIGH RISK) 2.5-3.5 RECURRENT MYOCARDIAL INFARCTION 2.5-3.5 Radiology Order: CT ABD & PELVIS: Oral Contrast Only Test: CT ABD & PELVIS: Oral Contrast Only REASON FOR EXAMINATION: Diverticulitis; ; CT of the abdomen and pelvis without contrast; Clinical statement: Pain.; Technique: Multiple axial CT images were obtained from the base of the lungs to the floor of the pelv; is utilizing 5 mm axial slices after ministration of oral contrast. Coronal and sagittal reconstructi; ons were also obtained.; No comparison is available.; Findings:; Chest: The visualized lung bases are clear.; Abdomen: The kidneys are normal in size bilaterally. There is no evidence of hydronephrosis or nephro; lithiasis. The liver, spleen, pancreas, gallbladder and adrenal glands are unremarkable. The aorta de; monstrates normal caliber and contour. There is no abdominal lymphadenopathy or ascites. IVC filter i; s in place.; Pelvis: The bowel is unremarkable, with no obstructive or inflammatory changes. The appendix is woo; l. The urinary bladder is within normal limits. There is no pelvic lymphadenopathy or ascites. The ot; her pelvic structures appear unremarkable.; Bones: There are no suspicious osseous abnormalities seen.; Impression: Unremarkable CT examination of the abdomen and pelvis.; ; Outcome: 01:55 Discharge ordered by Provider. cs11 02:03 Discharge Assessment: Patient awake, alert and oriented x 3. No cognitive and/or jp6 functional deficits noted. Patient verbalized understanding of disposition instructions. patient administered narcotics - yes. Pt provided with safe discharge. The following High Risk Discharge criteria are identified: None. Discharged to home via wheelchair, with significant other. Condition: good. Discharge instructions given to patient, Instructed on discharge instructions, follow up and referral plans. medication usage, Demonstrated understanding of instructions, medications, Pt was receptive of discharge instructions/ teaching. Prescriptions given X 1. CT Study completed. Property :Personal belongings accompany Pt. 02:47 Patient left the ED. jp6 Signatures: Dispatcher [employer] EDMS Dora Wang, Reg Reg gb Naina Matias,RN RN rs3 Christiano Rojas DO DO cs11 Irlanda Laughlin gr2 Sulema Clement JessicaRN RN jp6 Chart Complete MTDD
--- NOTE | 2016-12-29 03:48 | EDDOCDS ---
Physician Documentation [facility] Name: Fifi Vigil Age: 66 yrs Sex: Female : 1950 Arrival Date: 12/26/2016 Time: 21:32 Bed 7 Private MD: Redd Griffith MD Disposition: 12/27/16 01:55 Discharged to Home/Self Care. Impression: Left sided colitis, Dehydration, Pneumonia in diseases classified elsewhere - perihilar infiltrate. - Condition is Stable. - Discharge Instructions: Clear Liquid Diet. - Prescriptions for Zithromax Z- Ihsan 250 mg Oral Tablet - take 1 tablet by ORAL route as directed for 5 days Day 1- take two tablets once. Day 2, 3, 4 , 5 take one tablet once daily.; 6 tablet. - Medication Reconciliation, Local Pharmacy Hours form. - Follow up: Redd Griffith; When: Call to arrange an appointment; Reason: Recheck today's complaints. - Problem is new. - Symptoms have improved. Historical: - Allergies: IODINEIODINE CONTAINING; IV Dye (Hives); Latex (Hives); - Home Meds: 1. Calcium + Vitamin D 600 mg calcium- 200 unit Oral tab daily 2. captopril 12.5 mg Oral tab 1 tab 2 times per day 3. carisoprodol 350 mg Oral tab 1 tab 3 times per day 4. desipramine 10 mg Oral tab 1 tab once daily 5. Effexor XR 37.5 mg Oral cp24 1 cap once daily 6. fluoxetine 20 mg Oral cap 3 caps once daily 7. metformin 500 mg Oral tr24 1 tab once daily 8. metoprolol succinate 100 mg Tb24 1 tab once daily 9. omeprazole 20 mg Oral cpDR 1 cap once daily 10. oxycodone-acetaminophen 10-325 mg Oral tab twice a day as needed 11. Plavix 75 mg Oral tab 1 tab once daily 12. probenecid 500 mg Oral tab daily 13. simvastatin 40 mg Oral tab 1 tab once daily 14. verapamil 240 mg Oral TbER 1 tab once daily 15. Vesicare 10 mg oral tab 1 tab once daily 16. nystatin 100,000 unit/gram Topical powd as needed 17. lactulose 20 gram/30 mL Oral soln twice a day - PMHx: CHF; Diabetes - NIDDM: controlled; Diverticulitis; High Cholesterol; spina bifida; TIA; - PSHx: Hysterectomy; amputation toes; Carpal Tunnel Repair- Bilateral; Hernia repair; Tony Filter Placement; left knee replacement; - Social history: Smoking status: Patient states former smoker of tobacco. No barriers to communication noted, The patient speaks fluent Slovenian. - Family history: Not pertinent. - : The pt / caregiver states he / she is not on anticoagulants. Home medication list is obtained from the patient. - Exposure Risk Screening:: None identified. Vital Signs: 12/26 21:34 BP 147 / 67; Pulse 129; Resp 18 S; Temp 99.8(O); Pulse Ox 93% on R/A; Weight 101.15 kg gr2 / 223 lbs (R); Height 5 ft. 7 in. (170.18 cm) (R); Pain 7/10; 12/27 00:14 BP 127 / 86 (auto/); jp6 00:16 Pulse Ox 93% ; jp6 00:16 Pulse 118; Resp 20; Temp 99.6(O); Pain 9/10; jp6 01:21 BP 122 / 65 (auto/); jp6 01:22 Pulse 104 MON; Pulse Ox 94% ; jp6 01:22 Resp 18; Pain 9/10; jp6 01:32 BP 123 / 67 (auto/); jp6 01:33 Pulse 110 MON; Pulse Ox 93% ; jp6 02:02 BP 124 / 58 (auto/); jp6 02:03 Pulse 110 MON; Pulse Ox 92% ; jp6 02:03 Resp 20; Temp 99.6(O); Pain 2/10; jp6 12/26 21:34 Body Mass Index 34.93 (101.15 kg, 170.18 cm) gr2 MDM: 12/26 22:05 IV Saline Lock ordered. cs11 22:05 NS 0.9% 500 ml IV at bolus once ordered. cs11 22:05 morphine 2 mg IVP once ordered. cs11 22:06 CBC with Diff Ordered. EDMS 22:06 MED Profile Ordered. EDMS 22:06 Liver Profile Ordered. EDMS 22:06 Amylase Ordered. EDMS 22:06 Lipase Ordered. EDMS 22:06 Pt & Aptt Ordered. EDMS 22:11 CT ABD & PELVIS: Oral Contrast Only Ordered. EDMS 22:30 Barium Sulfate Suspension 450 ml PO bolus ordered. jp6 22:44 CBC with Diff Reviewed. cs11 22:44 MED Profile Reviewed. cs11 22:44 Liver Profile Reviewed. cs11 22:44 Amylase Reviewed. cs11 22:44 Lipase Reviewed. cs11 22:44 Pt & Aptt Reviewed. cs11 22:44 NS 0.9% 500 ml IV at bolus once ordered. cs11 22:51 Financial registration complete. gjb 23:01 [facility] Payment Agreement was scanned into [employer] and attached to record. gjb 23:01 Undo -Financial registration. gjb 23:01 Financial registration complete. gjb 23:36 Barium Sulfate Suspension 450 ml PO bolus ordered. jp6 12/27 00:59 CT ABD & PELVIS: Oral Contrast Only Reviewed. cs11 00:59 NS 0.9% 500 ml IV at bolus once ordered. cs11 01:02 Chest, 2 View (pa\E\lat) Ordered. EDMS 01:18 morphine 2 mg IVP once ordered. cs11 01:18 Vital Signs ordered. cs11 07:46 T-Sheet-- Draft Copy was scanned into [employer] and attached to record. gb 10:57 Radiology Report was scanned into [employer] and attached to record. gb Administered Medications: 12/26 22:20 Drug: morphine 2 mg [morphine 2 mg/mL intravenous cartridge (1 mL)] Route: IVP; Site: jp6 right antecubital; 22:21 Drug: NS 0.9% 500 ml [sodium chloride 0.9 % intravenous solution] Route: IV; Rate: jp6 bolus; Site: right antecubital; 22:30 Drug: Barium Sulfate 450 ml [barium sulfate 2.1 % (w/v), 2.0 % (w/w) oral suspension jp6 (450 mL)] Route: PO; 23:02 Drug: NS 0.9% 500 ml [sodium chloride 0.9 % intravenous solution] Route: IV; Rate: jp6 bolus; Site: right antecubital; 23:36 Drug: Barium Sulfate 450 ml [barium sulfate 2.1 % (w/v), 2.0 % (w/w) oral suspension jp6 (450 mL)] Route: PO; 12/27 01:29 Drug: morphine 2 mg [morphine 2 mg/mL intravenous cartridge (1 mL)] Route: IVP; Site: jp6 right antecubital; 01:30 Drug: NS 0.9% 500 ml [sodium chloride 0.9 % intravenous solution] Route: IV; Rate: jp6 bolus; Site: right antecubital; Signatures: Dispatcher [employer] Dora Mota, Reg Reg gb Naina Matias,RN RN rs3 Christiano Rojas DO DO cs11 Sulema Clement JessicaRN RN jp6 The chart was reviewed and I authenticate all verbal orders and agree with the evaluation and treatment provided.Attachments: 12/26 23:01 [facility] Payment Agreement gjb 12/27 07:46 T-Sheet-- Draft Copy gb Chart Complete MTDD
--- NOTE | 2016-12-29 03:48 | EDDOCDS ---
Physician Documentation [facility] Name: Fifi Vigil Age: 66 yrs Sex: Female : 1950 Arrival Date: 12/26/2016 Time: 21:32 Bed 7 Private MD: Redd Griffith MD Disposition: 12/27/16 01:55 Discharged to Home/Self Care. Impression: Left sided colitis, Dehydration, Pneumonia in diseases classified elsewhere - perihilar infiltrate. - Condition is Stable. - Discharge Instructions: Clear Liquid Diet. - Prescriptions for Zithromax Z- Ihsan 250 mg Oral Tablet - take 1 tablet by ORAL route as directed for 5 days Day 1- take two tablets once. Day 2, 3, 4 , 5 take one tablet once daily.; 6 tablet. - Medication Reconciliation, Local Pharmacy Hours form. - Follow up: Redd Griffith; When: Call to arrange an appointment; Reason: Recheck today's complaints. - Problem is new. - Symptoms have improved. Historical: - Allergies: IODINEIODINE CONTAINING; IV Dye (Hives); Latex (Hives); - Home Meds: 1. Calcium + Vitamin D 600 mg calcium- 200 unit Oral tab daily 2. captopril 12.5 mg Oral tab 1 tab 2 times per day 3. carisoprodol 350 mg Oral tab 1 tab 3 times per day 4. desipramine 10 mg Oral tab 1 tab once daily 5. Effexor XR 37.5 mg Oral cp24 1 cap once daily 6. fluoxetine 20 mg Oral cap 3 caps once daily 7. metformin 500 mg Oral tr24 1 tab once daily 8. metoprolol succinate 100 mg Tb24 1 tab once daily 9. omeprazole 20 mg Oral cpDR 1 cap once daily 10. oxycodone-acetaminophen 10-325 mg Oral tab twice a day as needed 11. Plavix 75 mg Oral tab 1 tab once daily 12. probenecid 500 mg Oral tab daily 13. simvastatin 40 mg Oral tab 1 tab once daily 14. verapamil 240 mg Oral TbER 1 tab once daily 15. Vesicare 10 mg oral tab 1 tab once daily 16. nystatin 100,000 unit/gram Topical powd as needed 17. lactulose 20 gram/30 mL Oral soln twice a day - PMHx: CHF; Diabetes - NIDDM: controlled; Diverticulitis; High Cholesterol; spina bifida; TIA; - PSHx: Hysterectomy; amputation toes; Carpal Tunnel Repair- Bilateral; Hernia repair; Tony Filter Placement; left knee replacement; - Social history: Smoking status: Patient states former smoker of tobacco. No barriers to communication noted, The patient speaks fluent Wallisian. - Family history: Not pertinent. - : The pt / caregiver states he / she is not on anticoagulants. Home medication list is obtained from the patient. - Exposure Risk Screening:: None identified. Vital Signs: 12/26 21:34 BP 147 / 67; Pulse 129; Resp 18 S; Temp 99.8(O); Pulse Ox 93% on R/A; Weight 101.15 kg gr2 / 223 lbs (R); Height 5 ft. 7 in. (170.18 cm) (R); Pain 7/10; 12/27 00:14 BP 127 / 86 (auto/); jp6 00:16 Pulse Ox 93% ; jp6 00:16 Pulse 118; Resp 20; Temp 99.6(O); Pain 9/10; jp6 01:21 BP 122 / 65 (auto/); jp6 01:22 Pulse 104 MON; Pulse Ox 94% ; jp6 01:22 Resp 18; Pain 9/10; jp6 01:32 BP 123 / 67 (auto/); jp6 01:33 Pulse 110 MON; Pulse Ox 93% ; jp6 02:02 BP 124 / 58 (auto/); jp6 02:03 Pulse 110 MON; Pulse Ox 92% ; jp6 02:03 Resp 20; Temp 99.6(O); Pain 2/10; jp6 12/26 21:34 Body Mass Index 34.93 (101.15 kg, 170.18 cm) gr2 MDM: 12/26 22:05 IV Saline Lock ordered. cs11 22:05 NS 0.9% 500 ml IV at bolus once ordered. cs11 22:05 morphine 2 mg IVP once ordered. cs11 22:06 CBC with Diff Ordered. EDMS 22:06 MED Profile Ordered. EDMS 22:06 Liver Profile Ordered. EDMS 22:06 Amylase Ordered. EDMS 22:06 Lipase Ordered. EDMS 22:06 Pt & Aptt Ordered. EDMS 22:11 CT ABD & PELVIS: Oral Contrast Only Ordered. EDMS 22:30 Barium Sulfate Suspension 450 ml PO bolus ordered. jp6 22:44 CBC with Diff Reviewed. cs11 22:44 MED Profile Reviewed. cs11 22:44 Liver Profile Reviewed. cs11 22:44 Amylase Reviewed. cs11 22:44 Lipase Reviewed. cs11 22:44 Pt & Aptt Reviewed. cs11 22:44 NS 0.9% 500 ml IV at bolus once ordered. cs11 22:51 Financial registration complete. gjb 23:01 [facility] Payment Agreement was scanned into [employer] and attached to record. gjb 23:01 Undo -Financial registration. gjb 23:01 Financial registration complete. gjb 23:36 Barium Sulfate Suspension 450 ml PO bolus ordered. jp6 12/27 00:59 CT ABD & PELVIS: Oral Contrast Only Reviewed. cs11 00:59 NS 0.9% 500 ml IV at bolus once ordered. cs11 01:02 Chest, 2 View (pa\E\lat) Ordered. EDMS 01:18 morphine 2 mg IVP once ordered. cs11 01:18 Vital Signs ordered. cs11 07:46 T-Sheet-- Draft Copy was scanned into [employer] and attached to record. gb 10:57 Radiology Report was scanned into [employer] and attached to record. gb Administered Medications: 12/26 22:20 Drug: morphine 2 mg [morphine 2 mg/mL intravenous cartridge (1 mL)] Route: IVP; Site: jp6 right antecubital; 22:21 Drug: NS 0.9% 500 ml [sodium chloride 0.9 % intravenous solution] Route: IV; Rate: jp6 bolus; Site: right antecubital; 22:30 Drug: Barium Sulfate 450 ml [barium sulfate 2.1 % (w/v), 2.0 % (w/w) oral suspension jp6 (450 mL)] Route: PO; 23:02 Drug: NS 0.9% 500 ml [sodium chloride 0.9 % intravenous solution] Route: IV; Rate: jp6 bolus; Site: right antecubital; 23:36 Drug: Barium Sulfate 450 ml [barium sulfate 2.1 % (w/v), 2.0 % (w/w) oral suspension jp6 (450 mL)] Route: PO; 12/27 01:29 Drug: morphine 2 mg [morphine 2 mg/mL intravenous cartridge (1 mL)] Route: IVP; Site: jp6 right antecubital; 01:30 Drug: NS 0.9% 500 ml [sodium chloride 0.9 % intravenous solution] Route: IV; Rate: jp6 bolus; Site: right antecubital; Signatures: Dispatcher [employer] Dora Mota, Reg Reg gb Naina Matias,RN RN rs3 Christiano Rojas DO DO cs11 Sulema Clement JessicaRN RN jp6 The chart was reviewed and I authenticate all verbal orders and agree with the evaluation and treatment provided.Attachments: 12/26 23:01 [facility] Payment Agreement gjb 12/27 07:46 T-Sheet-- Draft Copy gb Chart Complete MTDD
--- NOTE | 2016-12-29 08:29 | REP ---
PA and lateral chest: Comparison is 2016. There are no focal infiltrates or effusions. Lung hough otherwise clear. Cardiac size is normal. The juan francisco and mediastinum are unremarkable. There is bilateral shoulder osteoarthritis and bilateral humeral neck osteochondromas, unchanged. Impression: No acute cardiopulmonary findings. Signed by Donn Harden MD 12/27/2016 08:46 A
== END 2016-12-27 02:47 | disposition home or self-care (01) ==
LOC: M ED 21:32
DX: K52.9 Noninfective gastroenteritis and colitis, unspecified (principal); E86.0 Dehydration; J18.9 Pneumonia, unspecified organism; I50.9 Heart failure, unspecified; E11.9 Type 2 diabetes mellitus without complications; K57.30 Diverticulosis of large intestine without perforation or abscess without bleeding; E78.00 Pure hypercholesterolemia, unspecified; Z86.73 Personal history of transient ischemic attack (TIA), and cerebral infarction without residual deficits; Q05.9 Spina bifida, unspecified; Z89.429 Acquired absence of other toe(s), unspecified side; Z96.652 Presence of left artificial knee joint; Z95.828 Presence of other vascular implants and grafts; Z87.891 Personal history of nicotine dependence; Z79.899 Other long term (current) drug therapy; Z79.02 Long term (current) use of antithrombotics/antiplatelets; Z88.8 Allergy status to other drugs, medicaments and biological substances; Z91.041 Radiographic dye allergy status; Z91.040 Latex allergy status

== ENCOUNTER → 2020-01-10 | Outpatient (CLI) | payer MEDICARE ==
[~2020-01-10] MED LIST changes: +EFFE37.5 PO; -EFFE37.527 PO; +FLUO20CA22 PO; -FLUO20CA9 PO; +LACT10SO7 PO; -LACT20EL PO; -METO-209 PO; +METO-745 OR; +METO1TAB33 PO; +OMEP1CAP73 PO; -OMEP20CA3 PO; -PERC10TA17 PO; +PERC10TA26 PO; +PLAV1TAB2 PO; -PLAV75TA38 PO; -SIMV40TA2 PO; +SIMV40TA20 PO; -TOPR100T OR; -VESI10TA PO; +VESI10TA2 PO
--- NOTE | 2020-01-10 16:31 | REP ---
Clinical: Left flank pain. Technique: Axial noncontrast images from the lung bases to the pubic symphysis with coronal and sagittal re-formations. Comparison: 12/27/2016. Findings: Lung bases are clear. Visualized heart and pericardium normal. Liver, spleen, pancreas, gallbladder, bilateral adrenal glands and kidneys are normal for noncontrast examination. Specifically, no perinephric stranding, hydroureteronephrosis, intrarenal or obstructing ureteral calculi are identified. IVC filter noted. The enteric system is without obstruction or acute inflammatory process. Normal terminal ileum and appendix are identified in the right lower quadrant. Few scattered sigmoid diverticula noted without acute diverticulitis. Pelvis demonstrates normal bladder and evidence of prior hysterectomy. No ascites. No free air. No adenopathy. Abdominal aorta without aneurysm. Musculoskeletal structures demonstrate degenerative changes. Impression: 1. No acute abdominopelvic pathology appreciated. Electronically Signed by Gabe Roy MD 01/10/2020 04:22 P
== END ==
LOC: M RAD 15:51
PROVIDERS: ATTEND Family Medicine
DX: N23 Unspecified renal colic (principal)

== ENCOUNTER → 2020-06-25 | Outpatient (CLI) | payer MEDICARE ==
--- NOTE | 2020-08-17 10:46 | REP ---
THREE PHASE BONE SCAN OF THE KNEES: HISTORY: Rule out loosening of hardware, double knee replacement. Presence of left artificial knee joint. TECHNIQUE: 22.0 mCi of Technetium 99m MDP is injected and standard three phase imaging is acquired. FINDINGS: The anterior and posterior flow images are unremarkable. Blood pool images demonstrate a focus of slightly asymmetric uptake laterally on the left about the artificial knee prosthesis. Delayed scan images demonstrates bone/prosthesis interface uptake bilaterally, left generally a little more prominent that right. On the lateral projection, there is asymmetric increased uptake in the left knee region posteriorly at the level of the distal femoral prosthetic component. There is asymmetric uptake laterally on the left on the anterior images as well. This may reflect loosening. IMPRESSION: Findings consistent with loosening at the femoral component of the left knee prosthesis posteriorly and laterally. Otherwise, expected uptake pattern post bilateral knee arthroplasty. MTDD
== END ==
LOC: M RAD 07:30
PROVIDERS: ATTEND Physician Assistant Surgical
DX: Z96.653 Presence of artificial knee joint, bilateral (principal)

== ENCOUNTER → 2022-01-14 | Outpatient (REF) | payer MEDICARE ==
[~2022-01-14] MED LIST changes: -CEFD1CAP8 PO; +CEFD300C41 PO; -DOXY100C PO; +DOXY100C3 PO; +VERA240T65 PO; -VERA24TASA PO
[2022-01-14 19:25] LABS: APPEARANCE, URINE CLEAR (CLEAR); BACTERIA, URINE AUTO 2+ (NEGATIVE); BILIRUBIN, URINE AUTO NEGATIVE (NEGATIVE); BLOOD, URINE BLOOD NEGATIVE (NEGATIVE); COLOR, URINE YELLOW (YELLOW); GLUCOSE, URINE (UA) AUTO NEGATIVE (NEGATIVE); KETONE, URINE AUTO TRACE mg/dL (NEGATIVE); LEUKOCYTE ESTERASE, URINE AUTO 2+ (NEGATIVE); MUCUS, URINE SMALL (NEGATIVE); NITRITE, URINE AUTO POSITIVE (NEGATIVE); PROTEIN, URINE AUTO NEGATIVE (NEGATIVE); RBC, URINE AUTO 1 /HPF (0-3); SPECIFIC GRAVITY URINE AUTO 1.023 (1.002-1.035); SQUAMOUS EPITHELIAL CELL UR AU 4 /HPF (0-6); UROBILINOGEN, URINE AUTO 0.2 mg/dL (0.0-2.0); WBC, URINE AUTO 91 /HPF (0-3)
== END ==
LOC: M SMT 16:51
PROVIDERS: ATTEND Physician Assistant
DX: R32 Unspecified urinary incontinence (principal)

== ENCOUNTER → 2022-11-14 | Outpatient (CLI) | payer MEDICARE ==
[~2022-11-14] MED LIST changes: +CLOP75TA99 PO; -PLAV1TAB2 PO
== END ==
LOC: M WHC 12:56
PROVIDERS: ATTEND Family Medicine
DX: Z12.31 Encounter for screening mammogram for malignant neoplasm of breast (principal)

== ENCOUNTER → 2023-03-18 | Outpatient (CLI) | payer MEDICARE, MEDICAID | LOC: M RAD 10:03 | PROVIDERS: ATTEND Physician Assistant Surgical | DX: T84.84XA Pain due to internal orthopedic prosthetic devices, implants and grafts, initial encounter (principal) | CPT/HCPCS: 78315; A9503 ==

== ENCOUNTER 2025-01-18 15:44 | Inpatient (IN) | payer MEDICARE, MEDICAID ==
[~2025-01-18] VITALS: Ht 172.7 cm; Wt 151.1 kg
[~2025-01-18 15:44] MED LIST changes: +CEFD1CAP9 PO; -CEFD300C41 PO; -EFFE37.5 PO; +EFFE37.52 PO; +FLUO-365 PO; -FLUO20CA22 PO
[2025-01-18 17:24] LABS: BASO # 0.1 10^3/uL (0.0-0.2); BASO % 0.7 % (0.0-1.0); EOS # 0.2 10^3/uL (0.0-0.5); EOS % 2.2 % (0.0-3.0); HEMATOCRIT 40.1 % (36.0-47.0); HEMOGLOBIN 12.8 g/dl (12.0-15.5); LYMPH % 10.9 % (24.0-44.0); MEAN CORPUSCULAR HEMOGLOBIN 30.9 pg (27.0-33.0); MEAN CORPUSCULAR HGB CONC 31.9 g/dl (32.0-36.5); MEAN CORPUSCULAR VOLUME 96.9 fl (80.0-96.0); MONO # 0.8 10^3/uL (0.0-0.8); MONO % 8.8 % (2.0-8.0); NEUTROPHILS % 76.7 % (36.0-66.0); PLATELET COUNT, AUTOMATED 223 10^3/uL (150-450); RED BLOOD COUNT 4.14 10^6/uL (4.00-5.40); WHITE BLOOD COUNT 9.1 10^3/uL (4.0-10.0)
[2025-01-18 17:46] LABS: ALBUMIN 3.2 G/DL (3.2-5.2); ALKALINE PHOSPHATASE 98 U/L (35-104); ALT/SGPT 17 U/L (7.0-40); AST/SGOT 18 U/L (<34); BILIRUBIN,DIRECT 0.2 MG/DL (<0.4); BILIRUBIN,TOTAL 0.7 MG/DL (0.3-1.2); BLOOD UREA NITROGEN 18 MG/DL (9-23); CALCIUM LEVEL 8.6 MG/DL (8.3-10.6); CARBON DIOXIDE LEVEL 27 MMOL/L (20-31); CHLORIDE LEVEL 103 MMOL/L (98-107); CK-MB VALUE MASS < 1.0 NG/ML (<3.6); GLOMERULAR FILTRATION RATE > 60.0 (>39); GLUCOSE, FASTING 130 MG/DL (74-106); POTASSIUM SERUM 4.8 MMOL/L (3.5-5.1); SODIUM LEVEL 140 MMOL/L (136-145); TOTAL PROTEIN 6.7 G/DL (5.7-8.2)
[2025-01-18 17:49] LABS: THYROID STIMULATING HORMONE 5.078 uIU/ML (0.55-4.78)
[2025-01-18 17:50] LABS: FREE T4 1.24 NG/DL (0.89-1.76); KETONE, URINE MANUAL REFLEX NEGATIVE (NEGATIVE); NITRITE, URINE MANUAL RFX POSITIVE (NEGATIVE); PROTEIN, URINE MANUAL REFLEX 1+ mg/dL (NEGATIVE); UROBILINOGEN, UA MANUAL REFLEX NORMAL (NORMAL)
[2025-01-18 17:53] LABS: CPK CREATINE PHOSPHOKINASE 59 U/L (34-145); MB/CK RELATIVE INDEX 1.69 (< OR =4)
[2025-01-18 17:58] LABS: HYALINE CAST, URINE RFX NONE SEEN /lpf (0-1); MICROSCOPIC EXAM RFX PERFORMED; RBC, URINE MAN REFLEX NONE SEEN /hpf (0-3); SQUAMOUS EPITHELIAL URINE RFX NONE SEEN /hpf (SMALL AMT); WBC, URINE MAN RFX 20-30 /hpf (0-3)
[2025-01-18] MEDS: cefTRIAXone SOD 1 GM in DEXTROSE 5% (D5W) ADV/MINI-BAG 50 ML IV ONE (20:30)
[2025-01-18] MEDS ORDERED: ACET-897 PO (22:39)
[2025-01-18] MEDS ORDERED: ATOR1TAB21 PO (22:44)
[2025-01-18] MEDS ORDERED: NYST-13 TOP (22:44)
[2025-01-18] MEDS ORDERED: DILT30TA PO (22:44)
[2025-01-18] MEDS ORDERED: FLEC1TAB PO (22:44)
[2025-01-18] MEDS ORDERED: GABA-1172 PO (22:44)
[2025-01-18] MEDS ORDERED: FERR32TA PO (22:44)
[2025-01-18] MEDS ORDERED: HOME MED LIST COMPLETE! XX SCH (22:45)
[2025-01-19 00:54] VITALS: BP 136/61; TEMP 98.4; O2SAT 95
[2025-01-19] MEDS ORDERED: GLUCOSE 4 GM CHEW PO PRN (01:05)
[2025-01-19] MEDS ORDERED: GLUCAGON INJ 1MG VIAL SC PRN (01:05)
[2025-01-19] MEDS ORDERED: DEXTROSE 50% 50ML SYRINGE IV PRN (01:05)
[2025-01-19] MEDS: IPRATROPIUM 0.5MG/ALBUTEROL 2.5MG INH SOL UD 3ML (DUONEB) NEB SCH (01:10)
[2025-01-19] MEDS: guaiFENesin ER TABLET 600 MG TAB PO SCH ×2 (01:52→09:47)
[2025-01-19] MEDS: ATORVASTATIN 20 MG TAB PO SCH (01:52)
[2025-01-19 04:30] VITALS: BP 133/65; TEMP 97.4; O2SAT 95
[2025-01-19] MEDS: predniSONE 5 MG TAB PO SCH (06:06)
[2025-01-19 08:38] LABS: BASO # 0.1 10^3/uL (0.0-0.2); BASO % 0.7 % (0.0-1.0); EOS # 0.1 10^3/uL (0.0-0.5); EOS % 1.5 % (0.0-3.0); HEMATOCRIT 39.1 % (36.0-47.0); HEMOGLOBIN 12.3 g/dl (12.0-15.5); LYMPH % 13.2 % (24.0-44.0); MEAN CORPUSCULAR HEMOGLOBIN 30.3 pg (27.0-33.0); MEAN CORPUSCULAR HGB CONC 31.5 g/dl (32.0-36.5); MEAN CORPUSCULAR VOLUME 96.3 fl (80.0-96.0); MONO # 0.6 10^3/uL (0.0-0.8); MONO % 8.5 % (2.0-8.0); NEUTROPHILS # 5.4 10^3/uL (1.5-8.5); NEUTROPHILS % 75.7 % (36.0-66.0); PLATELET COUNT, AUTOMATED 212 10^3/uL (150-450); RED BLOOD COUNT 4.06 10^6/uL (4.00-5.40); WHITE BLOOD COUNT 7.2 10^3/uL (4.0-10.0)
[2025-01-19 08:43] LABS: ERYTHROCYTE SEDIMENTATION RATE 76 mm/hr (0-30)
[2025-01-19 09:20] LABS: BLOOD UREA NITROGEN 15 MG/DL (9-23); C REACTIVE PROTEIN QUANTITATIV 2.15 MG/DL (<1.0); CALCIUM LEVEL 8.6 MG/DL (8.3-10.6); CARBON DIOXIDE LEVEL 31 MMOL/L (20-31); CHLORIDE LEVEL 105 MMOL/L (98-107); CREATININE FOR GFR 0.76 MG/DL (0.55-1.30); GLOMERULAR FILTRATION RATE > 60.0 (>39); GLUCOSE, FASTING 138 MG/DL (74-106); POTASSIUM SERUM 4.8 MMOL/L (3.5-5.1); SODIUM LEVEL 141 MMOL/L (136-145)
[2025-01-19 09:27] LABS: PROCALCITONIN 0.14 ng/ml
[2025-01-19] MEDS: INSULIN LISPRO (NovoLOG) PER UNIT SC SCH ×2 (09:44→20:55)
[2025-01-19] MEDS: ENOXAPARIN 60MG/0.6ML SYRINGE (J1650 PER 10MG) SC SCH (09:44)
[2025-01-19] MEDS: CETIRIZINE (ZyrTEC) 10 MG TAB PO SCH (09:45)
[2025-01-19] MEDS: FLECAINIDE 50MG TABLET PO SCH (09:45)
[2025-01-19] MEDS: NYSTATIN CREAM 15GM TOP SCH (09:45)
[2025-01-19] MEDS: GABAPENTIN 300 MG CAP PO SCH (09:45)
[2025-01-19] MEDS: FLUoxetine 20MG CAP PO SCH (09:46)
[2025-01-19] MEDS: OMEPRAZOLE 20MG CAP PO SCH (09:46)
[2025-01-19] MEDS: FERROUS GLUCONATE 324 MG TAB PO SCH (09:46)
[2025-01-19] MEDS: MONTELUKAST 10 MG TAB PO SCH (09:46)
[2025-01-19] MEDS: CLOPIDOGREL 75 MG TAB PO SCH (09:47)
[2025-01-19] MEDS: dilTIAZem 30 MG TAB PO SCH (09:48)
[2025-01-19] MEDS: METOPROLOL SUCC (TopROL XL) 100MG *XL* TAB PO SCH (09:48)
[2025-01-19 12:00] VITALS: BP 140/65; TEMP 97.5; O2SAT 94
[2025-01-19 14:00] VITALS: BP 135/52; TEMP 97.9
[2025-01-19 19:29] VITALS: BP 130/53; TEMP 98.1; O2SAT 93
[2025-01-19] MEDS: cefTRIAXone SOD 1 GM in DEXTROSE 5% (D5W) ADV/MINI-BAG 50 ML IV SCH (21:09)
[2025-01-19] MEDS: KETOROLAC 30 MG/ML 1ML VIAL IV PRN (21:09)
[2025-01-20 03:26] VITALS: BP 146/72; TEMP 97.9; O2SAT 97
[2025-01-20 07:17] LABS: BASO # 0.1 10^3/uL (0.0-0.2); BASO % 0.7 % (0.0-1.0); EOS # 0.3 10^3/uL (0.0-0.5); EOS % 3.7 % (0.0-3.0); HEMATOCRIT 37.1 % (36.0-47.0); HEMOGLOBIN 11.5 g/dl (12.0-15.5); LYMPH # 1.5 10^3/uL (1.5-5.0); LYMPH % 21.4 % (24.0-44.0); MEAN CORPUSCULAR HEMOGLOBIN 29.7 pg (27.0-33.0); MEAN CORPUSCULAR VOLUME 95.9 fl (80.0-96.0); MONO # 0.8 10^3/uL (0.0-0.8); MONO % 10.8 % (2.0-8.0); NEUTROPHILS # 4.5 10^3/uL (1.5-8.5); PLATELET COUNT, AUTOMATED 208 10^3/uL (150-450); RED BLOOD COUNT 3.87 10^6/uL (4.00-5.40); WHITE BLOOD COUNT 7.1 10^3/uL (4.0-10.0)
[2025-01-20 07:40] VITALS: BP 128/98; TEMP 97.7; O2SAT 96
[2025-01-20 07:42] LABS: BLOOD UREA NITROGEN 19 MG/DL (9-23); CALCIUM LEVEL 8.5 MG/DL (8.3-10.6); CARBON DIOXIDE LEVEL 31 MMOL/L (20-31); CHLORIDE LEVEL 104 MMOL/L (98-107); GLOMERULAR FILTRATION RATE > 60.0 (>39); GLUCOSE, FASTING 131 MG/DL (74-106); SODIUM LEVEL 141 MMOL/L (136-145)
[2025-01-20 12:00] VITALS: BP 140/71; TEMP 98.1; O2SAT 96
[2025-01-20 19:36] VITALS: BP 135/63; TEMP 98.1; O2SAT 94
[2025-01-20] MEDS: CEFDINIR 300 MG CAP (OMNICEF) PO SCH (20:43)
[2025-01-21 03:49] VITALS: TEMP 97.7; O2SAT 92; O2SAT 94
[2025-01-21 06:40] LABS: BASO # 0.1 10^3/uL (0.0-0.2); BASO % 0.9 % (0.0-1.0); EOS # 0.3 10^3/uL (0.0-0.5); EOS % 4.7 % (0.0-3.0); HEMATOCRIT 37.1 % (36.0-47.0); HEMOGLOBIN 11.6 g/dl (12.0-15.5); LYMPH # 1.1 10^3/uL (1.5-5.0); LYMPH % 15.9 % (24.0-44.0); MEAN CORPUSCULAR HEMOGLOBIN 31.2 pg (27.0-33.0); MEAN CORPUSCULAR HGB CONC 31.3 g/dl (32.0-36.5); MEAN CORPUSCULAR VOLUME 99.7 fl (80.0-96.0); MONO # 0.6 10^3/uL (0.0-0.8); MONO % 8.5 % (2.0-8.0); NEUTROPHILS # 4.6 10^3/uL (1.5-8.5); NEUTROPHILS % 69.5 % (36.0-66.0); PLATELET COUNT, AUTOMATED 205 10^3/uL (150-450); RED BLOOD COUNT 3.72 10^6/uL (4.00-5.40); WHITE BLOOD COUNT 6.6 10^3/uL (4.0-10.0)
[2025-01-21 07:04] LABS: BLOOD UREA NITROGEN 23 MG/DL (9-23); CALCIUM LEVEL 8.7 MG/DL (8.3-10.6); CARBON DIOXIDE LEVEL 29 MMOL/L (20-31); CHLORIDE LEVEL 105 MMOL/L (98-107); CREATININE FOR GFR 0.83 MG/DL (0.55-1.30); GLOMERULAR FILTRATION RATE > 60.0 (>39); GLUCOSE, FASTING 141 MG/DL (74-106); POTASSIUM SERUM 5.3 MMOL/L (3.5-5.1); SODIUM LEVEL 142 MMOL/L (136-145)
[2025-01-21 12:00] VITALS: BP 126/56; TEMP 97.9; O2SAT 92
[2025-01-21] MEDS: ACETAMINOPHEN 325 MG TAB PO PRN (15:25)
[2025-01-21 19:44] VITALS: BP 118/50; TEMP 97.9; O2SAT 91
[2025-01-22] MEDS: NORCO, ANEXSIA 5/325MG TABLET (HYDROcodone/ACETAMINOPHEN) PO ONE (00:18)
[2025-01-22] MEDS: MOM 30ML SUSPENSION UDC PO PRN (00:18)
[2025-01-22 04:00] VITALS: BP 124/56; TEMP 97.5; O2SAT 89
[2025-01-22] MEDS ORDERED: NALOXONE INJ 0.4MG/1ML VIAL IV PRN (07:55)
[2025-01-22 08:16] VITALS: BP 129/76
[2025-01-22 08:19] LABS: BASO # 0.1 10^3/uL (0.0-0.2); EOS # 0.3 10^3/uL (0.0-0.5); EOS % 4.2 % (0.0-3.0); HEMATOCRIT 37.7 % (36.0-47.0); HEMOGLOBIN 11.6 g/dl (12.0-15.5); LYMPH # 1.6 10^3/uL (1.5-5.0); LYMPH % 19.9 % (24.0-44.0); MEAN CORPUSCULAR HEMOGLOBIN 30.2 pg (27.0-33.0); MEAN CORPUSCULAR HGB CONC 30.8 g/dl (32.0-36.5); MEAN CORPUSCULAR VOLUME 98.2 fl (80.0-96.0); MONO # 0.8 10^3/uL (0.0-0.8); MONO % 9.9 % (2.0-8.0); NEUTROPHILS # 5.2 10^3/uL (1.5-8.5); NEUTROPHILS % 64.5 % (36.0-66.0); PLATELET COUNT, AUTOMATED 219 10^3/uL (150-450); RED BLOOD COUNT 3.84 10^6/uL (4.00-5.40)
[2025-01-22] MEDS: MIRALAX *UNIT DOSE* 17GM PACKET PO SCH (08:19)
[2025-01-22] MEDS: LACTULOSE 20GM/30ML SYRUP UDC PO ONE (08:20)
[2025-01-22] MEDS: PERCOCET 5MG/325MG TAB PO ONE (08:22)
[2025-01-22] MEDS: SENOKOT S TAB PO SCH (08:23)
[2025-01-22 08:26] LABS: ERYTHROCYTE SEDIMENTATION RATE 65 mm/hr (0-30)
[2025-01-22 08:57] LABS: BLOOD UREA NITROGEN 20 MG/DL (9-23); C REACTIVE PROTEIN QUANTITATIV 1.07 MG/DL (<1.0); CALCIUM LEVEL 8.4 MG/DL (8.3-10.6); CARBON DIOXIDE LEVEL 30 MMOL/L (20-31); CHLORIDE LEVEL 103 MMOL/L (98-107); CREATININE FOR GFR 0.73 MG/DL (0.55-1.30); GLOMERULAR FILTRATION RATE > 60.0 (>39); GLUCOSE, FASTING 125 MG/DL (74-106); POTASSIUM SERUM 4.8 MMOL/L (3.5-5.1); SODIUM LEVEL 139 MMOL/L (136-145)
[2025-01-22 09:09] LABS: PROCALCITONIN 0.08 ng/ml
[2025-01-22 12:00] VITALS: BP 140/67; TEMP 97.7; O2SAT 88
[2025-01-22] MEDS: PERCOCET 5MG/325MG TAB PO PRN (12:19)
[2025-01-23 03:20] VITALS: O2SAT 86
[2025-01-23 03:27] VITALS: O2SAT 94
[2025-01-23 04:00] VITALS: BP 124/65; TEMP 98.1; O2SAT 94
[2025-01-23 10:57] VITALS: BP 121/65; TEMP 97.7; O2SAT 88
[2025-01-23 13:40] LABS: HEMATOCRIT 37.6 % (36.0-47.0); HEMOGLOBIN 11.5 g/dl (12.0-15.5); MEAN CORPUSCULAR HGB CONC 30.6 g/dl (32.0-36.5); MEAN CORPUSCULAR VOLUME 98.2 fl (80.0-96.0); PLATELET COUNT, AUTOMATED 234 10^3/uL (150-450); RED BLOOD COUNT 3.83 10^6/uL (4.00-5.40); WHITE BLOOD COUNT 9.3 10^3/uL (4.0-10.0)
[2025-01-23 14:04] LABS: BLOOD UREA NITROGEN 22 MG/DL (9-23); CALCIUM LEVEL 8.6 MG/DL (8.3-10.6); CARBON DIOXIDE LEVEL 32 MMOL/L (20-31); CHLORIDE LEVEL 100 MMOL/L (98-107); CREATININE FOR GFR 0.82 MG/DL (0.55-1.30); GLOMERULAR FILTRATION RATE > 60.0 (>39); GLUCOSE, FASTING 112 MG/DL (74-106); POTASSIUM SERUM 4.8 MMOL/L (3.5-5.1); SODIUM LEVEL 138 MMOL/L (136-145)
[2025-01-23 20:06] VITALS: BP 124/57; TEMP 98.1
[2025-01-24] MEDS: LACTULOSE 20GM/30ML SYRUP UDC PO PRN (01:01)
[2025-01-24] MEDS: BISACODYL 5MG TAB PO PRN (01:01)
[2025-01-24 05:39] VITALS: BP 126/57; TEMP 98.1; O2SAT 91
[2025-01-24] MEDS: MOM 30ML SUSPENSION UDC PO PRN (11:32)
[2025-01-24 20:10] VITALS: BP 130/62; TEMP 97.7; O2SAT 95
[2025-01-25 04:00] VITALS: TEMP 97.5; O2SAT 90
[2025-01-25 06:49] VITALS: BP 126/80
[2025-01-26 04:00] VITALS: BP 128/55; TEMP 97.5; O2SAT 93
[2025-01-26 07:21] LABS: ALBUMIN 2.6 G/DL (3.2-5.2); BILIRUBIN,DIRECT 0.3 MG/DL (<0.4); BILIRUBIN,TOTAL 0.9 MG/DL (0.3-1.2); TOTAL PROTEIN 5.8 G/DL (5.7-8.2)
[2025-01-26 12:41] LABS: HEMOGLOBIN 10.6 g/dl (12.0-15.5); MEAN CORPUSCULAR HEMOGLOBIN 30.4 pg (27.0-33.0); MEAN CORPUSCULAR HGB CONC 31.2 g/dl (32.0-36.5); MEAN CORPUSCULAR VOLUME 97.4 fl (80.0-96.0); PLATELET COUNT, AUTOMATED 238 10^3/uL (150-450); RED BLOOD COUNT 3.49 10^6/uL (4.00-5.40)
[2025-01-26 13:23] LABS: BLOOD UREA NITROGEN 22 MG/DL (9-23); CALCIUM LEVEL 8.4 MG/DL (8.3-10.6); CARBON DIOXIDE LEVEL 29 MMOL/L (20-31); CHLORIDE LEVEL 101 MMOL/L (98-107); CREATININE FOR GFR 0.74 MG/DL (0.55-1.30); GLOMERULAR FILTRATION RATE > 60.0 (>39); GLUCOSE, FASTING 165 MG/DL (74-106); POTASSIUM SERUM 4.8 MMOL/L (3.5-5.1); SODIUM LEVEL 138 MMOL/L (136-145)
[2025-01-27 04:00] VITALS: BP 118/43; TEMP 97.7; O2SAT 90
[2025-01-27 08:00] VITALS: BP 116/65; TEMP 97.7; O2SAT 92
[2025-01-27 10:00] VITALS: BP 111/65; TEMP 97.7
[2025-01-27 19:59] VITALS: BP 114/67
[2025-01-28 03:29] VITALS: BP 118/69; TEMP 97.7; O2SAT 95
[2025-01-28 04:57] LABS: BASO # 0.1 10^3/uL (0.0-0.2); BASO % 0.6 % (0.0-1.0); EOS # 0.2 10^3/uL (0.0-0.5); EOS % 2.5 % (0.0-3.0); HEMATOCRIT 32.8 % (36.0-47.0); HEMOGLOBIN 10.1 g/dl (12.0-15.5); LYMPH # 1.7 10^3/uL (1.5-5.0); LYMPH % 18.1 % (24.0-44.0); MEAN CORPUSCULAR HGB CONC 30.8 g/dl (32.0-36.5); MEAN CORPUSCULAR VOLUME 97.3 fl (80.0-96.0); MONO # 1.1 10^3/uL (0.0-0.8); MONO % 11.5 % (2.0-8.0); NEUTROPHILS # 6.2 10^3/uL (1.5-8.5); NEUTROPHILS % 66.7 % (36.0-66.0); PLATELET COUNT, AUTOMATED 262 10^3/uL (150-450); RED BLOOD COUNT 3.37 10^6/uL (4.00-5.40); WHITE BLOOD COUNT 9.3 10^3/uL (4.0-10.0)
[2025-01-28 05:31] LABS: ALBUMIN 2.6 G/DL (3.2-5.2); ALKALINE PHOSPHATASE 87 U/L (35-104); ALT/SGPT 30 U/L (7.0-40); AST/SGOT 22 U/L (<34); BILIRUBIN,TOTAL 1.1 MG/DL (0.3-1.2); BLOOD UREA NITROGEN 20 MG/DL (9-23); CALCIUM LEVEL 8.3 MG/DL (8.3-10.6); CARBON DIOXIDE LEVEL 30 MMOL/L (20-31); CHLORIDE LEVEL 101 MMOL/L (98-107); CREATININE FOR GFR 0.71 MG/DL (0.55-1.30); GLOMERULAR FILTRATION RATE > 60.0 (>39); GLUCOSE, FASTING 130 MG/DL (74-106); POTASSIUM SERUM 4.8 MMOL/L (3.5-5.1); SODIUM LEVEL 137 MMOL/L (136-145)
[2025-01-28] MEDS: ONDANSETRON 4MG ORAL DISINTEGRATING TAB PO PRN (05:47)
[2025-01-28] MEDS: LACTULOSE 20GM/30ML SYRUP UDC PO SCH (05:56)
[2025-01-28] MEDS: BENZONATATE 100MG CAPSULE PO PRN (17:40)
[2025-01-29 04:08] VITALS: BP 120/68; TEMP 97.5; O2SAT 91
[2025-01-30 04:01] VITALS: BP 120/53; TEMP 97.7; O2SAT 93
[2025-01-30 08:03] VITALS: BP 120/53
[2025-01-30] MEDS ORDERED: LACTULOSE 20GM/30ML SYRUP UDC PO PRN (09:00)
[2025-01-30 12:34] LABS: HEMOGLOBIN 10.2 g/dl (12.0-15.5); MEAN CORPUSCULAR HEMOGLOBIN 30.5 pg (27.0-33.0); MEAN CORPUSCULAR HGB CONC 30.9 g/dl (32.0-36.5); MEAN CORPUSCULAR VOLUME 98.8 fl (80.0-96.0); PLATELET COUNT, AUTOMATED 259 10^3/uL (150-450); RED BLOOD COUNT 3.34 10^6/uL (4.00-5.40); WHITE BLOOD COUNT 8.8 10^3/uL (4.0-10.0)
[2025-01-30] MEDS ORDERED: PRED5TA PO (12:46)
[2025-01-30] MEDS ORDERED: CETI10TA PO (12:46)
[2025-01-30] MEDS ORDERED: PERCOCET PO (12:46)
[2025-01-30] MEDS ORDERED: LACT20EL PO (12:46)
[2025-01-30] MEDS ORDERED: SENN-52 PO (12:46)
[2025-01-30] MEDS ORDERED: MIRA33506 PO (12:46)
[2025-01-30] MEDS ORDERED: MUCI600T31 PO (12:46)
[2025-01-30] MEDS ORDERED: IPRA0.00 NEB (12:46)
[2025-01-30] MEDS ORDERED: BENZ-18 PO (12:48)
[2025-01-30 12:55] LABS: BLOOD UREA NITROGEN 23 MG/DL (9-23); CARBON DIOXIDE LEVEL 27 MMOL/L (20-31); CHLORIDE LEVEL 106 MMOL/L (98-107); GLOMERULAR FILTRATION RATE > 60.0 (>39); GLUCOSE, FASTING 182 MG/DL (74-106); POTASSIUM SERUM 4.8 MMOL/L (3.5-5.1); SODIUM LEVEL 141 MMOL/L (136-145)
[2025-01-31] MEDS ORDERED: predniSONE 5 MG TAB PO SCH (09:00)
== END 2025-01-30 14:00 | DRG 690 ==
LOC: EDBD 15:44 → M ED 15:44 → M ED INP 22:38 → EEVIPCON 22:38 → M MS4PR 01-19 00:54 → M MS5PR 01-19 13:55
PROVIDERS: ADMIT Student in an Organized Health Care Education/Training Program; ATTEND Internal Medicine Nephrology
DX: N39.0 Urinary tract infection, site not specified (principal); J98.11 Atelectasis; Z68.43 Body mass index [BMI] 50.0-59.9, adult; F11.20 Opioid dependence, uncomplicated; E11.40 Type 2 diabetes mellitus with diabetic neuropathy, unspecified; I50.9 Heart failure, unspecified; F41.9 Anxiety disorder, unspecified; F32.A Depression, unspecified; I11.0 Hypertensive heart disease with heart failure; K21.9 Gastro-esophageal reflux disease without esophagitis; K44.9 Diaphragmatic hernia without obstruction or gangrene; J32.0 Chronic maxillary sinusitis; R26.89 Other abnormalities of gait and mobility; R11.0 Nausea; K59.09 Other constipation; J06.9 Acute upper respiratory infection, unspecified; R53.1 Weakness; J20.9 Acute bronchitis, unspecified; E66.01 Morbid (severe) obesity due to excess calories; G89.29 Other chronic pain; M54.9 Dorsalgia, unspecified; M15.9 Polyosteoarthritis, unspecified; I48.0 Paroxysmal atrial fibrillation; B96.20 Unspecified Escherichia coli [E. coli] as the cause of diseases classified elsewhere; R09.02 Hypoxemia; Z86.718 Personal history of other venous thrombosis and embolism; Z87.442 Personal history of urinary calculi; Z86.73 Personal history of transient ischemic attack (TIA), and cerebral infarction without residual deficits; Z96.653 Presence of artificial knee joint, bilateral; Z89.421 Acquired absence of other right toe(s); Z79.02 Long term (current) use of antithrombotics/antiplatelets; Z79.84 Long term (current) use of oral hypoglycemic drugs; Z79.899 Other long term (current) drug therapy; Z88.6 Allergy status to analgesic agent; Z88.8 Allergy status to other drugs, medicaments and biological substances; Z91.040 Latex allergy status; Z91.041 Radiographic dye allergy status

== ENCOUNTER 2025-10-18 22:57 | Emergency (ER) | payer MEDICARE, MEDICAID ==
[~2025-10-18 22:57] MED LIST changes: +ACET-897 PO; +AMOX875T2 PO; +ATOR1TAB21 PO; +BENZ-18 PO; +BUPR15TASR PO; -CAPT125TA PO; +CAPT1TAB16 PO; +CETI10TA PO; +DILT30TA PO; +FERR32TA PO; +FLEC1TAB PO; +FURO40TA2 PO; +GABA-1172 PO; +IPRA0.00 NEB; +LACT20EL PO; +MELA5TAB44 PO; +MIRA33506 PO; +MUCI600T31 PO; +MYRB50TA PO; +NYST0.1C TOP; +OXYC10TA3 PO; +PERCOCET PO; +PRED5TA PO; +SENN-52 PO; +TOLT4CAP3 PO; +oxygen
== END 2025-10-19 02:43 | disposition expired ==
LOC: M ED 22:57
DX: I46.9 Cardiac arrest, cause unspecified; E11.9 Type 2 diabetes mellitus without complications; I10 Essential (primary) hypertension; E78.5 Hyperlipidemia, unspecified; K21.9 Gastro-esophageal reflux disease without esophagitis; Z88.8 Allergy status to other drugs, medicaments and biological substances; Z88.6 Allergy status to analgesic agent; Z91.040 Latex allergy status; Z91.041 Radiographic dye allergy status; Z79.2 Long term (current) use of antibiotics; Z79.84 Long term (current) use of oral hypoglycemic drugs; Z79.899 Other long term (current) drug therapy